=== PATIENT | male | born 1945 | race Caucasian/White ===

== ENCOUNTER 2018-03-16 18:36 | Inpatient (IN) | payer MEDICARE ==
[2018-03-16 22:15] LABS: Bilirubin Negative (Negative); Blood, Urine Trace (Negative); Clarity Clear (Clear); Glucose, Urine (Dipstick) Negative (Negative); Leukocyte Moderate (Negative); Nitrite Negative (Negative); Protein, Urine (Dipstick) Negative (Neg-Trace); Specific Gravity, Urine 1.015 (1.005-1.030); pH, Urine 7.5 (5.0-9.0)
[2018-03-16 22:37] LABS: Bacteria/HPF 2+ HPF (None Seen); Squamous Epithelial 0-3 HPF (0-3)
[2018-03-16] MEDS ORDERED: Ondansetron ODT 4 MG TAB PO PRN (22:51)
[2018-03-16] MEDS ORDERED: Famotidine 20 MG TAB PO SCH (23:00)
[2018-03-16] MEDS ORDERED: Sodium Chloride 0.9% 10 ML ONE (23:17)
[2018-03-16] MEDS: Cyclobenzaprine 10 MG TAB PO PRN (23:24)
[2018-03-16] MEDS: Piperacillin/Tazobactam 3.375 GM in Sodium Chloride 0.9% 100 ML IVPB SCH (23:25)
[2018-03-17] MEDS ORDERED: Sodium Chloride 0.9% 10 ML ONE (04:32)
[2018-03-17] MEDS: Mometasone/Formoterol 60 PUFF AER INH SCH ×2 (04:43→18:37)
[2018-03-17] MEDS: Piperacillin/Tazobactam 3.375 GM in Sodium Chloride 0.9% 100 ML IVPB SCH (05:13)
[2018-03-17 05:31] LABS: #Basophils 0.1 thou/uL (0.0-0.2); #Eosinphils 0.9 thou/uL (0.0-0.7); #Lymphocytes 1.8 thou/uL (1.20-3.40); #Monocytes 0.8 thou/uL (0.11-0.59); #Neutrophils 5.6 thou/uL (1.40-6.50); %Basophils 0.9 % (0.0-1.0); %Eosinophils 9.4 % (0.0-10.0); %Lymphocytes 19.4 % (21.0-51.0); %Monocytes 8.6 % (0.0-10.0); %Neutrophils 61.7 % (42.0-75.0); Hemoglobin 8.4 g/dL (14.0-18.0); Mean Corpuscular HGB CONC 30.9 g/dL (32.0-36.0); Mean Corpuscular Hemoglobin 28.6 pg (27.0-31.0); Mean Corpuscular Volume 92.6 fL (78.0-98.0); Mean Platelet Volume 5.2 fL (7.4-10.4); Platelet Count 411 thou/uL (130-400); RBC Distribution Width 17.5 % (11.5-14.5); Red Blood Cell (RBC) Count 2.95 mill/uL (4.70-6.10); White Blood Cell (WBC) Count 9.1 thou/uL (4.8-10.8)
[2018-03-17 05:44] LABS: Anion Gap 10 mmol/L (10-20); BUN (Urea Nitrogen) 9 mg/dL (8.4-25.7); Calc. Creatinine Clearance 126 mL/min (70-130); Calcium 8.4 mg/dL (7.8-10.44); Carbon Dioxide 24 mmol/L (23-31); Chloride 104 mmol/L (98-107); Estimated GFR-MDRD Greater than 90; Glucose 89 mg/dL (83-110); Potassium 4.1 mmol/L (3.5-5.1); Sodium 134 mmol/L (136-145)
[2018-03-17] MEDS: Meropenem 1 GM in Sodium Chloride 0.9% 100 ML IVPB SCH ×2 (09:39→18:33)
[2018-03-17] MEDS: Famotidine 20 MG TAB PO SCH ×2 (09:41→20:50)
[2018-03-17] MEDS: Thiamine 100 MG TAB PO SCH (09:42)
[2018-03-17] MEDS: guaiFENesin ER 600 MG TAB PO SCH ×2 (09:42→20:50)
[2018-03-17] MEDS: Aspirin 81 mg Enteric Coated Tablet PO SCH (09:42)
[2018-03-17] MEDS: Cyclobenzaprine 10 MG TAB PO PRN ×2 (09:45→18:33)
[2018-03-17] MEDS: Docusate 100 MG CAP PO SCH (09:47)
[2018-03-17] MEDS: Polyethylene Glycol 3350 17 GM Packet PO SCH (09:47)
[2018-03-17] MEDS ORDERED: Sodium Chloride 0.9% 20 ML ONE (10:49)
--- NOTE | 2018-03-17 20:47 | PRG ---
DATE OF SERVICE: 03/17/2018 SUBJECTIVE: The patient feels well, sitting up in bed, eating supper. No complaints. He has had his wound VAC placed on his sacrum, but not on his heels. He is having no fever, chills, nausea, or vomiting. OBJECTIVE: VITAL SIGNS: Show temperature is 97.8, pulse is 86, respirations 20, O2 saturation is 100% on 2.5 L. LUNGS: Show improved breath sounds with a few wheezes and rhonchi anteriorly in the right lung. CARDIAC: Regular rhythm. ABDOMEN: Soft and nontender. MUSCULOSKELETAL: Wound VAC is in place on the sacrum and heels are bandaged. ASSESSMENT AND PLAN: 1. Stage IV sacral decubitus with infection, on IV meropenem for 6 weeks. 2. 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 3. 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 Job ID: [id number]
--- NOTE | 2018-03-18 00:43 | HP ---
Admission to the skilled unit [facility]. 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 He has subsequently been essentially bed and chair ridden since that time, has developed extensive decubitus ulcer in the sacrum as well as bilateral heels requiring incision and debridement by Dr. Harris Don and institution of empiric IV antibiotics. He was seen by Infectious Disease and because of multiple anaerobes, mainly gram-negative and corynebacterium, he was initially placed on Invanz, but then was switched to meropenem upon transfer to [facility]. His urine culture did show Pseudomonas also. He had a complication immediately prior to transfer with mucous plugging of his right lung with subsequent right lung collapse, which responded to conservative treatment with EzPAP and bronchodilators as he did refuse bronchoscopy. At present, he is not complaining of any chest pain or shortness of breath. As mentioned above, he has no feeling in his sacrum and heels at the side of the decubitus. He has had no fever or chills. No cough. He is eating well. No aspiration. PAST MEDICAL HISTORY: Remarkable for: 1. COPD. 2. Pulmonary embolus. 3. Hypertension. 4. Esophageal malignancy. 5. Recurrent UTIs. 6. Sepsis. PAST SURGICAL HISTORY: Positive for the abovementioned debridement and spinal surgery as well as esophageal dilation, but no removal of the cancer of the esophagus. FAMILY MEDICAL HISTORY: Noncontributory. SOCIAL HISTORY: He is a former heavy smoker. He does not drink. He lives alone. ALLERGIES: HE HAS NO KNOWN ALLERGIES. MEDICATIONS: On transfer from [facility] included: 1. Tylenol as needed. 2. Docusate 100 daily. 3. Famotidine 20 twice daily. 4. Handheld nebulizers with DuoNeb every 4 hours routinely. 5. Zofran 4 mg as needed. 6. Tramadol 50 mg every 6 hours as needed. 7. Meropenem 1 g twice daily. 8. Symbicort 80/4.5 two puffs twice daily. 9. Dapsone 50 mg every other day alternating with 100. 10. Aspirin 81 daily. REVIEW OF SYSTEMS: He denies any headaches, dizziness, change in vision or hearing, hoarseness, or dysphagia. PULMONARY: He has occasional cough. No sputum production. He has had chest pain with the mucus plug, but none at present. CARDIOVASCULAR: He denies chest pain, palpitations, orthopnea, paroxysmal nocturnal dyspnea, or edema. GASTROINTESTINAL: He denies nausea, vomiting, diarrhea, or abdominal pain. Does have constipation. GENITOURINARY: Denies dysuria, hematuria, or nocturia, but he does have Carvalho catheter in place because of neurogenic bladder. NEUROLOGIC: As mentioned above, he has paraplegia at the T4 level with decreased sensation also. EXTREMITIES: He does have a large stage IV decubitus of the sacrum and bilateral heel decubitus, stage III to IV. DATA REVIEWED: LABORATORY RESULTS: Most recent laboratory showed him to have white count of 9100, hematocrit 27, and hemoglobin 8.4. Sodium 134, potassium 4.1, chloride 104, bicarbonate 24, BUN 9, and creatinine 0.64. IMAGING RESULTS: Most recent chest x-ray shows persistent volume loss and right hemithorax. ASSESSMENT: 1. Esophageal cancer with metastasis to thoracic spine and subsequent paraplegia secondary to surgical removal. 2. Subsequent stage IV decubitus of the sacrum and the heels requiring debridement and long-term antibiotics for 6 weeks with IV meropenem for multiple Gram negative anaerobes and aerobes. 3. Recent right lung collapse with mucus plugging secondary to the paraplegia, paralyzed diaphragm, improved with handheld nebulizers, but not resolved. We will continue around the clock and we will get repeat x-ray. 4. Neurogenic bladder with Carvalho catheter in place and Pseudomonas infection of the catheter, sensitive to the meropenem. PLAN: 1. Continue PT and wound care. Patient up in the bed as much as possible. Wound VAC to both sacrum and both heels. 2. Continue IV meropenem for 6 weeks on instructions of Infectious Disease. 3. Continue to stress incentive spirometry and handheld nebulizers and repeat chest x-ray to document improvement of right lung collapse. 4. Patient is a full code and will be aggressive on pulmonary toilet and possible transfer for more treatment aggressively if needed. Job ID: [id number]
[2018-03-18] MEDS ORDERED: Sodium Chloride 0.9% 20 ML ONE ×3 (02:28→17:45)
[2018-03-18] MEDS: Meropenem 1 GM in Sodium Chloride 0.9% 100 ML IVPB SCH ×3 (02:36→18:05)
[2018-03-18] MEDS: Mometasone/Formoterol 60 PUFF AER INH SCH ×2 (05:43→18:39)
--- NOTE | 2018-03-18 08:14 | RAD ---
PORTABLE CHEST: Date: 03/18/18 PROVIDED CLINICAL HISTORY: Right lung collapse. FINDINGS: Comparison made with study dated 03/15/16. The cardiac and mediastinal silhouette is unchanged in appearance. Right-sided implanted port is agai n seen in similar position. There is probable improved aeration at the right lung base, with some per sistent parenchymal opacity likely present. No evidence for pleural fluid or pneumothorax. IMPRESSION: Probable improvement in aeration of the right lung base. POS: [facility]
[2018-03-18] MEDS: Aspirin 81 mg Enteric Coated Tablet PO SCH (09:15)
[2018-03-18] MEDS: Docusate 100 MG CAP PO SCH (09:15)
[2018-03-18] MEDS: Famotidine 20 MG TAB PO SCH ×2 (09:16→20:54)
[2018-03-18] MEDS: Thiamine 100 MG TAB PO SCH (09:16)
[2018-03-18] MEDS: guaiFENesin ER 600 MG TAB PO SCH ×2 (09:17→20:54)
[2018-03-18] MEDS: Polyethylene Glycol 3350 17 GM Packet PO SCH (09:26)
[2018-03-18] MEDS: Cyclobenzaprine 10 MG TAB PO PRN (20:54)
[2018-03-19] MEDS: Meropenem 1 GM in Sodium Chloride 0.9% 100 ML IVPB SCH ×3 (02:34→18:08)
[2018-03-19] MEDS ORDERED: Sodium Chloride 0.9% 10 ML ONE (03:38)
[2018-03-19] MEDS: Mometasone/Formoterol 60 PUFF AER INH SCH ×2 (05:43→20:58)
--- NOTE | 2018-03-19 06:58 | PRG ---
DATE OF SERVICE: 03/18/2018 SUBJECTIVE: The patient feels well. No shortness of breath, chest pain, cough, fever, or chills. OBJECTIVE: VITAL SIGNS: With pulse 100, respirations 20, O2 saturations 94% on 2 L, blood pressure is 122/62. LUNGS: Clear. CARDIAC: Shows regular rhythm. ABDOMEN: Soft and nontender. MUSCULOSKELETAL: Shows wound VAC in place on the sacrum, and the heels are bandaged. DIAGNOSTIC DATA: Urine culture shows no growth at 12 hours. Chest x-ray shows improving right lung collapse with good aeration. ASSESSMENT: 1. Resolving stage IV decubitus on IV meropenem and wound VAC for 6 weeks. 2. Stable T4 paraplegia. 3. Resolved right lung collapse with improved x-ray and oxygenation was still requiring low-flow oxygen. 4. Heel decubitus and we will attempt to get wound VAC placed per recommendation of [facility]. Job ID: [id number]
--- NOTE | 2018-03-19 07:48 | PRG ---
DATE OF SERVICE: 03/19/2018 SUBJECTIVE: The patient feels well with no complaints. Resting in bed, having in no soreness of heels or bottom and does have a sensory deprivation. He is having no cough, shortness of breath, or chest pain. OBJECTIVE: VITAL SIGNS: Show O2 sats 93% on 2 L, respirations 20, pulse 98, temperature 97.7, blood pressure 133/76. LUNGS: Clear. CARDIAC: Shows regular rhythm. ABDOMEN: Soft. SKIN/EXTREMITIES: Show wound VAC in place on the sacrum. Heels are bandaged. ASSESSMENT: 1. Resolved right lower lobe collapse. 2. Stable T4 paraplegia. 3. Stable stage IV decubitus of sacrum on wound VAC and IV meropenem for 6 weeks. 4. Stable bilateral heel decubitus bandage and need of wound VAC. PLAN: 1. Consult PT, OT today. 2. Continue meropenem. 3. Transfer and keep moving in the bed as much as possible. Job ID: [id number]
[2018-03-19] MEDS ORDERED: Sodium Chloride 0.9% 20 ML ONE ×2 (08:39→17:40)
[2018-03-19] MEDS: Famotidine 20 MG TAB PO SCH ×2 (08:43→20:58)
[2018-03-19] MEDS: guaiFENesin ER 600 MG TAB PO SCH ×2 (08:43→20:58)
[2018-03-19] MEDS: Aspirin 81 mg Enteric Coated Tablet PO SCH (08:43)
[2018-03-19] MEDS: Thiamine 100 MG TAB PO SCH (08:44)
[2018-03-19] MEDS: Docusate 100 MG CAP PO SCH (08:44)
[2018-03-19] MEDS: Polyethylene Glycol 3350 17 GM Packet PO SCH (09:18)
[2018-03-19 11:37] VITALS: BMI 26.7
[2018-03-19] MEDS ORDERED: guaiFENesin ER 600 MG TAB ONE (20:54)
[2018-03-19] MEDS: Cyclobenzaprine 10 MG TAB PO PRN (20:59)
[2018-03-20] MEDS ORDERED: Sodium Chloride 0.9% 10 ML ONE (02:07)
[2018-03-20] MEDS: Meropenem 1 GM in Sodium Chloride 0.9% 100 ML IVPB SCH ×3 (02:13→18:06)
[2018-03-20] MEDS: Mometasone/Formoterol 60 PUFF AER INH SCH ×2 (06:12→18:10)
[2018-03-20] MEDS: Aspirin 81 mg Enteric Coated Tablet PO SCH (08:48)
[2018-03-20] MEDS: Docusate 100 MG CAP PO SCH (08:48)
[2018-03-20] MEDS: Thiamine 100 MG TAB PO SCH (08:48)
[2018-03-20] MEDS: Cyclobenzaprine 10 MG TAB PO PRN ×2 (08:48→21:13)
[2018-03-20] MEDS: Polyethylene Glycol 3350 17 GM Packet PO SCH (08:49)
[2018-03-20] MEDS: Famotidine 20 MG TAB PO SCH ×2 (08:49→21:12)
[2018-03-20] MEDS: guaiFENesin ER 600 MG TAB PO SCH ×2 (08:54→21:13)
--- NOTE | 2018-03-20 18:56 | PRG ---
DATE OF SERVICE: 03/20/2018 SUBJECTIVE: The patient feels well, eating well, having no nausea or vomiting. No cough. No shortness of breath or chest pain. OBJECTIVE: VITAL SIGNS: Shows temperature is 97.9, pulse 105, respirations 20, O2 saturations 90% on nasal cannula, it was 96% earlier today. Blood pressure 129/76. LUNGS: Clear. CARDIAC: Regular rhythm. ABDOMEN: Soft and nontender. SKIN/EXTREMITIES: Show sacral wound VAC in place and heel decubitus bandage with Medihoney and Mepilex. ASSESSMENT: 1. Stage IV sacral decubitus, on wound VAC and IV meropenem for 6 weeks. 2. T4 paraplegia, stable. 3. Mucus plug and right lower lobe collapsed lung, stable. PLAN: Continue nutrition. Continue wound VAC. Continue IV meropenem. Continue pain relief as needed. Job ID: [id number]
[2018-03-21] MEDS ORDERED: Sodium Chloride 0.9% 10 ML ONE ×2 (01:43→09:29)
[2018-03-21] MEDS: Meropenem 1 GM in Sodium Chloride 0.9% 100 ML IVPB SCH ×3 (02:20→18:12)
[2018-03-21] MEDS: Mometasone/Formoterol 60 PUFF AER INH SCH ×2 (06:08→18:13)
[2018-03-21] MEDS: guaiFENesin ER 600 MG TAB PO SCH ×2 (09:21→20:22)
[2018-03-21] MEDS: Cyclobenzaprine 10 MG TAB PO PRN ×2 (09:21→18:14)
[2018-03-21] MEDS: Thiamine 100 MG TAB PO SCH (09:21)
[2018-03-21] MEDS: Famotidine 20 MG TAB PO SCH ×2 (09:21→20:22)
[2018-03-21] MEDS: Polyethylene Glycol 3350 17 GM Packet PO SCH (09:22)
[2018-03-21] MEDS: Aspirin 81 mg Enteric Coated Tablet PO SCH (09:22)
[2018-03-21] MEDS: Docusate 100 MG CAP PO SCH (09:22)
--- NOTE | 2018-03-21 17:08 | RAD ---
CHEST 1 VIEW: Date: 03/21/18 HISTORY: Dyspnea. Mucus plugging. COMPARISON: 03/18/18. FINDINGS: Cardiac silhouette and pulmonary vasculature unremarkable. Mediastinum is midline with right subclavi an MediPort. Infiltrate-like opacity at the right posterior lung base is more pronounced than on the 03/18/18 stud y. No other infiltrate or evidence of pneumothorax. IMPRESSION: Increasing parenchymal opacity at the right posterior lung base. Nonspecific infiltrate or atelectasi s. Mucus plugging could certainly result in this parenchymal opacity/atelectasis. POS: [facility]
[2018-03-21 18:01] LABS: #Basophils 0.1 thou/uL (0.0-0.2); #Lymphocytes 1.4 thou/uL (1.20-3.40); #Monocytes 1.2 thou/uL (0.11-0.59); %Basophils 0.7 % (0.0-1.0); %Eosinophils 6.3 % (0.0-10.0); %Lymphocytes 8.9 % (21.0-51.0); %Monocytes 7.4 % (0.0-10.0); %Neutrophils 76.7 % (42.0-75.0); Hemoglobin 9.1 g/dL (14.0-18.0); Mean Corpuscular Hemoglobin 29.6 pg (27.0-31.0); Mean Corpuscular Volume 95.5 fL (78.0-98.0); Mean Platelet Volume 5.1 fL (7.4-10.4); Platelet Count 565 thou/uL (130-400); Red Blood Cell (RBC) Count 3.06 mill/uL (4.70-6.10); White Blood Cell (WBC) Count 15.7 thou/uL (4.8-10.8)
[2018-03-21 18:02] LABS: Anion Gap 10 mmol/L (10-20); BUN (Urea Nitrogen) 13 mg/dL (8.4-25.7); Calc. Creatinine Clearance 130 mL/min (70-130); Calcium 8.9 mg/dL (7.8-10.44); Carbon Dioxide 23 mmol/L (23-31); Chloride 103 mmol/L (98-107); Estimated GFR-MDRD Greater than 90; Glucose 108 mg/dL (83-110); Potassium 4.1 mmol/L (3.5-5.1); Sodium 132 mmol/L (136-145)
--- NOTE | 2018-03-21 18:27 | PRG ---
DATE OF SERVICE: 03/21/2018 SUBJECTIVE: The patient feels well today with no cough, shortness of breath, but has been noticed to have tachypnea and tachycardia this afternoon and hypotension. He denies chest pain, fever, or chills. OBJECTIVE: VITAL SIGNS: Blood pressure is 80/53, but did increase to 105/50; pulse is 107; respirations 18; O2 sats 96% on 2 L. Afebrile. CHEST/LUNGS: Chest x-ray did show a worsening small right lower lobe infiltrate consistent with mucus plugging. Lungs appear to be clear with no rales, rhonchi, or wheezes, but they were coarse earlier prior to neb treatment. LABORATORY DATA: CBC and basic metabolic profile are pending. ASSESSMENT: 1. Recurrent small mucus plugs, and we will aggressively do handheld nebulizers and if white count is elevated, start on antibiotics. 2. T4 paraplegia, cooperating well with therapy. 3. Stage IV decubitus of sacrum, healing well with wound VAC and on meropenem. 4. Bilateral heel decubitus, being treated with Medihoney and Mepilex. Job ID: [id number]
[2018-03-21] MEDS ORDERED: Fluconazole 100 MG TAB PO SCH (19:00)
[2018-03-21] MEDS ORDERED: Nystatin Powder 15 GM BOT TOP SCH (21:00)
[2018-03-22] MEDS ORDERED: Sodium Chloride 0.9% 10 ML ONE (02:19)
[2018-03-22] MEDS: Meropenem 1 GM in Sodium Chloride 0.9% 100 ML IVPB SCH ×3 (02:26→18:16)
[2018-03-22] MEDS: Mometasone/Formoterol 60 PUFF AER INH SCH ×2 (05:38→18:35)
[2018-03-22] MEDS: Docusate 100 MG CAP PO SCH (09:07)
[2018-03-22] MEDS: Aspirin 81 mg Enteric Coated Tablet PO SCH (09:07)
[2018-03-22] MEDS: Fluconazole 100 MG TAB PO SCH (09:08)
[2018-03-22] MEDS: guaiFENesin ER 600 MG TAB PO SCH ×2 (09:08→20:33)
[2018-03-22] MEDS: Famotidine 20 MG TAB PO SCH ×2 (09:08→20:33)
[2018-03-22] MEDS: Thiamine 100 MG TAB PO SCH (09:09)
[2018-03-22] MEDS: Polyethylene Glycol 3350 17 GM Packet PO SCH (09:09)
[2018-03-22] MEDS: Cyclobenzaprine 10 MG TAB PO PRN (20:33)
[2018-03-23] MEDS: Meropenem 1 GM in Sodium Chloride 0.9% 100 ML IVPB SCH ×3 (02:30→17:45)
[2018-03-23] MEDS: Mometasone/Formoterol 60 PUFF AER INH SCH ×2 (05:37→17:45)
[2018-03-23] MEDS: Polyethylene Glycol 3350 17 GM Packet PO SCH (09:00)
[2018-03-23] MEDS: Thiamine 100 MG TAB PO SCH (09:00)
[2018-03-23] MEDS: Fluconazole 100 MG TAB PO SCH (09:01)
[2018-03-23] MEDS: Famotidine 20 MG TAB PO SCH ×2 (09:02→21:43)
[2018-03-23] MEDS: Docusate 100 MG CAP PO SCH (09:02)
[2018-03-23] MEDS: Aspirin 81 mg Enteric Coated Tablet PO SCH (09:02)
[2018-03-23] MEDS: guaiFENesin ER 600 MG TAB PO SCH ×2 (09:02→21:43)
[2018-03-23] MEDS: Cyclobenzaprine 10 MG TAB PO PRN (21:43)
[2018-03-24] MEDS: Meropenem 1 GM in Sodium Chloride 0.9% 100 ML IVPB SCH ×3 (02:27→17:49)
[2018-03-24] MEDS: Mometasone/Formoterol 60 PUFF AER INH SCH ×2 (05:54→17:50)
[2018-03-24] MEDS: Polyethylene Glycol 3350 17 GM Packet PO SCH (09:38)
[2018-03-24] MEDS: guaiFENesin ER 600 MG TAB PO SCH ×2 (09:39→20:58)
[2018-03-24] MEDS: Docusate 100 MG CAP PO SCH (09:39)
[2018-03-24] MEDS: Famotidine 20 MG TAB PO SCH ×2 (09:39→20:59)
[2018-03-24] MEDS: Aspirin 81 mg Enteric Coated Tablet PO SCH (09:39)
[2018-03-24] MEDS: Fluconazole 100 MG TAB PO SCH (09:40)
[2018-03-24] MEDS: Thiamine 100 MG TAB PO SCH (09:40)
[2018-03-24] MEDS: Cyclobenzaprine 10 MG TAB PO PRN ×2 (09:40→20:58)
--- NOTE | 2018-03-24 23:14 | PRG ---
DATE OF SERVICE: 03/24/2018 SUBJECTIVE: Mr. Durbin is a 72-year-old white male with history of esophageal cancer with metastasis to the thoracic spine. It required surgical removal with subsequent paraplegia in the sensory motor nerves of T3 through 4. He basically is bed and chair ridden since that time. He has had an extensive decubitus in the sacral area as well as bilateral decubitus on his heels. Dr. Don did debridement and he was started on empiric antibiotics. He was transferred to [facility] for continued antibiotic therapy. OBJECTIVE: VITAL SIGNS: Vital signs today reveal blood pressure 112/66, pulse 97 to 106, respirations 18 to 20, O2 saturation 92% to 99% on 2 L nasal cannula, and T-max 99. GENERAL: This is a well-developed, well-nourished, thin white male, in no apparent distress at this time. HEENT: Reveals normocephalic, nontraumatic cranium. The pupils are equally round and reactive. Extraocular movements are intact. Nose and throat are dry, but clear. NECK: Supple without masses, nodes or bruits. CHEST: Clear to auscultation. No rales, rhonchi, or wheezes are heard. HEART: Reveals a regular rate and rhythm without murmurs, gallops, or rubs. ABDOMEN: Soft, nontender without organomegaly. Scaphoid. No rebound or guarding is noted. : Deferred. EXTREMITIES: Revealed no clubbing, cyanosis, or edema. The patient does have wound VAC on his stage IV decubitus on the sacrum and bilateral heel, stage III and IV. ASSESSMENT: 1. Esophageal cancer with metastasis to the thoracic spine and subsequent paraplegia. 2. Stage IV decubitus in the sacrum requiring wound VAC, debridement and long-term antibiotics of meropenem. 3. Right lung collapse recently with mucous plugging secondary to paraplegia and paralyzed diaphragm. 4. Neurogenic bladder with Carvalho catheter and Pseudomonas sensitive to meropenem. PLAN: 1. Continue PT and OT. 2. Continue wound care. 3. Keep the patient up in bed or out of bed as much as possible. 4. Wound VAC to both sacrum and both heels. 5. Meropenem for total of 6 weeks per Infectious Disease. 6. Stress incentive spirometry and handheld nebulizers. 7. The patient is a full code. 8. Aggressive pulmonary toilet. 9. Stress ulcer prophylaxis. 10. Decubitus precautions. 11. DVT prophylaxis per Service. Job ID: [id number]
[2018-03-25] MEDS: Meropenem 1 GM in Sodium Chloride 0.9% 100 ML IVPB SCH ×3 (02:04→18:19)
[2018-03-25] MEDS: Mometasone/Formoterol 60 PUFF AER INH SCH ×2 (05:35→18:20)
--- NOTE | 2018-03-25 07:58 | PRG ---
DATE OF SERVICE: 03/25/2018 SUBJECTIVE: Mr. Durbin is a pleasant 72-year-old white male with unfortunate esophageal cancer metastasis to the thoracic spine. He had to have surgical removal of a metastasis to the spine, which resulted in paraplegia of the sensory motor nerves on T3 through 4. Basically, he was in bed and chair ridden since that time. He has extensive decubitus in the sacral area as well as bilateral decubitus on his heels. Dr. Don was able to do debridement and he was started on empiric antibiotics. He was transferred to [facility] for continued antibiotic therapy and physical therapy. OBJECTIVE: VITAL SIGNS: Today reveals blood pressure 103/65, pulse 97 to 106, respirations 18 to 20, O2 saturation 96% to 99% on 2 L nasal cannula, T-max 99. PHYSICAL EXAMINATION: GENERAL: This is a well-developed, very thin, white male, with no complaints today. HEENT: Reveals normocephalic, nontraumatic cranium. Pupils are equally round and reactive. Extraocular movements are intact. Nose and throat are slightly dry. NECK: Supple without masses, nodes, or bruits. CHEST: Clear to auscultation. No rales, rhonchi, or wheezes are heard. HEART: Reveals a regular rate and rhythm without murmurs, gallops, or rubs. ABDOMEN: Soft, nontender without organomegaly. Normal bowel sounds are noted in all 4 quadrants. No rebound or guarding is noted. Abdomen is noted to be scaphoid. : Deferred. EXTREMITIES: Reveal no clubbing, cyanosis, or edema. The patient does have a VAC on his stage IV decubitus and on bilateral heels, which is stage III and stage IV. ASSESSMENT: 1. Esophageal cancer with metastasis to the thoracic spine and subsequent paraplegia. 2. Stage IV decubitus in the sacrum requiring wound VAC, debridement and long-term antibiotics of meropenem. 3. Right lung collapse recently with mucous plugging secondary to paraplegia and paralyzed diaphragm. 4. Neurogenic bladder with Carvalho catheter. 5. Growing Pseudomonas sensitive to meropenem. PLAN: 1. Continue wound care. 2. Continue the patient to keep him up in bed and out of bed as much as possible. 3. Wound VAC to both sacrum and both heels. 4. Meropenem for total of 6 weeks per Infectious Disease. 5. Stress incentive spirometry and handheld nebulizers. 6. The patient continues to be a full code. 7. Aggressive pulmonary toilet. 8. Stress ulcer prophylaxis. 9. Decubitus precautions. 10. DVT prophylaxis per primary service. 11. Continue PT and OT. Dr. Campos will be back tomorrow. Job ID: [id number]
[2018-03-25] MEDS: Cyclobenzaprine 10 MG TAB PO PRN ×2 (09:25→20:59)
[2018-03-25] MEDS: Fluconazole 100 MG TAB PO SCH (09:25)
[2018-03-25] MEDS: Docusate 100 MG CAP PO SCH (09:26)
[2018-03-25] MEDS: Aspirin 81 mg Enteric Coated Tablet PO SCH (09:27)
[2018-03-25] MEDS: guaiFENesin ER 600 MG TAB PO SCH ×2 (09:28→20:59)
[2018-03-25] MEDS: Polyethylene Glycol 3350 17 GM Packet PO SCH (09:28)
[2018-03-25] MEDS: Famotidine 20 MG TAB PO SCH ×2 (09:28→20:59)
[2018-03-25] MEDS: Thiamine 100 MG TAB PO SCH (09:28)
[2018-03-26] MEDS: Meropenem 1 GM in Sodium Chloride 0.9% 100 ML IVPB SCH ×3 (02:46→18:21)
[2018-03-26] MEDS: Mometasone/Formoterol 60 PUFF AER INH SCH ×2 (05:23→18:22)
[2018-03-26] MEDS: Aspirin 81 mg Enteric Coated Tablet PO SCH (09:37)
[2018-03-26] MEDS: Docusate 100 MG CAP PO SCH (09:38)
[2018-03-26] MEDS: Fluconazole 100 MG TAB PO SCH (09:38)
[2018-03-26] MEDS: Famotidine 20 MG TAB PO SCH ×2 (09:38→20:46)
[2018-03-26] MEDS: guaiFENesin ER 600 MG TAB PO SCH ×2 (09:39→20:46)
[2018-03-26] MEDS: Thiamine 100 MG TAB PO SCH (09:39)
[2018-03-26] MEDS: Polyethylene Glycol 3350 17 GM Packet PO SCH (09:39)
--- NOTE | 2018-03-26 15:55 | PRG ---
DATE OF SERVICE: 03/22/2018 SUBJECTIVE: The patient feels well, sitting up in the bed, eating with no cough or shortness of breath. OBJECTIVE: GENERAL: Speech Therapy, however, stated the patient is unsafe for any swallowing with the patient and refused PEG tube. VITAL SIGNS: Show blood pressure of 103/62, temperature is 97.1, pulse 104, respirations 20, O2 sats 93% on 2 L. LUNGS: Clear, except for few crackles in the right base. CARDIAC: Regular rhythm. ABDOMEN: Soft and nontender. SKIN AND EXTREMITIES: Displayed no edema, clubbing, or cyanosis. There is a wound VAC in place over large stage IV sacral decubitus, functioning well. Bilateral heel decubitus, healing well. IMAGING STUDIES: Chest x-ray done yesterday showed increasing parenchymal opacity in the right posterior lung base with atelectasis and possible mucous plugging. ASSESSMENT: 1. C4 quadriplegia with stage IV decubitus of sacrum on wound VAC, healing well. 2. Recurrent mucus plugging, now with right lower lobe infiltrate and with failed speech study. PLAN: 1. Have the patient sign waiver risk as he refuses PEG tube for further evaluation. Pulmonary states he feels very well. 2. Continue IV meropenem. 3. Continue PT and OT and wound care. Job ID: [id number]
--- NOTE | 2018-03-26 16:18 | PRG ---
DATE OF SERVICE: 03/23/2018 SUBJECTIVE: The patient feels well. Eating his lunch with no problems, cough, shortness of breath, or chest pain. He eating. OBJECTIVE: Shows, LUNGS: Clear. CARDIAC: Showed regular rhythm. ABDOMEN: Soft and nontender. SKIN/EXTREMITIES: No edema, clubbing, or cyanosis. There is bilateral heel decubitus, covered with bandage. There is a large sacral decubitus with wound VAC. ASSESSMENT: 1. T4 quadriplegia with poor diaphragmatic function. 2. Stable stage IV decubitus, on wound VAC and IV meropenem. 3. Recurrent mucus plugging, secondary to diaphragmatic dysfunction and now possible on recurrent aspiration. PLAN: 1. Continue pleasure feedings. 2. Continue wound VAC. 3. Continue IV antibiotics. 4. Re-consult Speech next week. Job ID: [id number]
[2018-03-26] MEDS: Cyclobenzaprine 10 MG TAB PO PRN (20:46)
[2018-03-27] MEDS: Meropenem 1 GM in Sodium Chloride 0.9% 100 ML IVPB SCH ×3 (02:39→22:02)
[2018-03-27] MEDS: Mometasone/Formoterol 60 PUFF AER INH SCH ×2 (05:48→18:37)
[2018-03-27] MEDS: Fluconazole 100 MG TAB PO SCH (09:31)
[2018-03-27] MEDS: Aspirin 81 mg Enteric Coated Tablet PO SCH (09:33)
[2018-03-27] MEDS: Docusate 100 MG CAP PO SCH (09:34)
[2018-03-27] MEDS: Thiamine 100 MG TAB PO SCH (09:34)
[2018-03-27] MEDS: guaiFENesin ER 600 MG TAB PO SCH ×2 (09:35→20:17)
[2018-03-27] MEDS: Famotidine 20 MG TAB PO SCH ×2 (09:35→20:16)
[2018-03-27] MEDS: Polyethylene Glycol 3350 17 GM Packet PO SCH (09:37)
[2018-03-27] MEDS: traMADol HCl 50 MG TAB PO PRN (15:04)
--- NOTE | 2018-03-27 19:06 | PRG ---
DATE OF SERVICE: 03/26/2018 SUBJECTIVE: The patient feels well. Only complains of occasional cough, shortness of breath. No chest pain or dyspnea. He is eating well. He is unable to do much therapy, but appears to be having improvement in his wound according to Physical Therapy. OBJECTIVE: VITAL SIGNS: Show his blood pressure is 98/61, temperature is 96, pulse 100, respirations 18, and O2 saturations 96% on 2 L. LUNGS: Show a few diffuse rhonchi, worse on the right. CARDIAC: Showed regular rhythm. No gallops or murmurs. ABDOMEN: Soft and nontender. SKIN/EXTREMITIES: Showed wound VAC in place on the left buttock and sacrum, bilateral heel decubitus covered. ASSESSMENT: 1. Stage IV decubitus of the sacrum, improving on wound VAC and IV meropenem, we will continue for a full 6 weeks until April 27. 2. Bilateral heel decubitus, healing well. 3. Recurrent aspiration with patient risk. 4. Mucus plugging. We are working on . 5. Stable T4 paraplegia. Job ID: [id number]
[2018-03-28 05:45] LABS: Band 12 % (5-11); Eosinophils 5 % (0-10); Hypochromia SLIGHT = 6-15 cells (100X) (0-5/hpf); Lymphocytes 13 % (21-51); MDiff Complete? YES; Mean Corpuscular HGB CONC 31.1 g/dL (32.0-36.0); Mean Corpuscular Hemoglobin 29.3 pg (27.0-31.0); Mean Corpuscular Volume 94.4 fL (78.0-98.0); Mean Platelet Volume 5.1 fL (7.4-10.4); Metamyelocyte 1 % (0-0); Monocytes 3 % (0-10); Myelocyte 1 % (0-0); Neutrophil 65 % (42-75); Platelet Count 524 thou/uL (130-400); Platelet Morphology Comment Appears Increased; RBC Distribution Width 15.8 % (11.5-14.5); Red Blood Cell (RBC) Count 3.08 mill/uL (4.70-6.10); White Blood Cell (WBC) Count 9.1 thou/uL (4.8-10.8)
[2018-03-28] MEDS: Meropenem 1 GM in Sodium Chloride 0.9% 100 ML IVPB SCH ×3 (06:03→22:01)
[2018-03-28] MEDS: Mometasone/Formoterol 60 PUFF AER INH SCH ×2 (06:05→18:29)
--- NOTE | 2018-03-28 06:35 | PRG ---
DATE OF SERVICE: 03/27/2018 SUBJECTIVE: The patient feels well. No cough, sputum production, chest pain or shortness of breath. He has been eating and tolerating diet despite concerns of speech therapy. OBJECTIVE: LUNGS: Do show increased breath sounds in the right lung with few diffuse rhonchi. CARDIAC: Regular rhythm. ABDOMEN: Soft and nontender. Wound VAC is in place, functioning well on the sacrum. EXTREMITIES: Bilateral heels still covered with bandages. ASSESSMENT: 1. Resolving sacral decubitus on IV meropenem for a total of 6 weeks, stop date to be April 27. 2. Recurrent aspiration concerns. Speech therapy with waiver of safety signed by patient. Still eating well with no symptoms of cough or shortness of breath and we will get repeat x-ray. 3. T4 quadriplegia, problems with obvious paralysis of legs, but also diaphragmatic dysfunction and decreased intake with mucous plugging, but now working well. Incentive spirometry greater than 50-100 mL inspiration and with clearing lung perez and we will get repeat chest x-ray and CBC in the a.m. Job ID: [id number]
--- NOTE | 2018-03-28 08:28 | RAD ---
CHEST 1 VIEW: Date: 03/28/18 INDICATION: History of right lower lobe pneumonia. IMPRESSION: There is improvement in the air space opacity of the right lower lobe. Persistent areas of reticulono dularity remain. Continued follow-up is recommended. Left lung is clear. Right chest wall port is unc hanged. No pneumothorax is grossly evident. POS: [facility]
[2018-03-28] MEDS: Thiamine 100 MG TAB PO SCH (09:42)
[2018-03-28] MEDS: Fluconazole 100 MG TAB PO SCH (09:42)
[2018-03-28] MEDS: Aspirin 81 mg Enteric Coated Tablet PO SCH (09:43)
[2018-03-28] MEDS: Polyethylene Glycol 3350 17 GM Packet PO SCH (09:43)
[2018-03-28] MEDS: guaiFENesin ER 600 MG TAB PO SCH ×2 (09:43→22:01)
[2018-03-28] MEDS: Famotidine 20 MG TAB PO SCH ×2 (09:43→22:01)
[2018-03-28] MEDS: Docusate 100 MG CAP PO SCH (09:43)
--- NOTE | 2018-03-29 06:12 | PRG ---
DATE OF SERVICE: 03/28/2018 SUBJECTIVE: The patient feels well, lying in the bed with no complaints. Eating well with no cough, shortness of breath. Discussed situation with physical therapy, states the patient is tolerating wound VAC well and is having some granulation tissue and is having some healing of the heels decubitus requiring occasional debridement, but is not progressing well with PT. He is unable to sit or stand more than a few minutes without dizziness and lightheadedness. Discussed situation with the patient, who states that he has been on his back for months and feels this is from weakness, but that he was requiring Yoselin lift for movement at home at all times prior to his illness and that his daughter is willing to take him home with a Yoselin lift. OBJECTIVE: VITAL SIGNS: Blood pressure is 114/58, temperature is 98, pulse 99, respirations 20, and O2 sats 97% on room air. LABORATORY DATA: White count 9100, hematocrit 29, and hemoglobin 9. DIAGNOSTIC STUDIES: Chest x-ray shows improvement in the right lower lobe infiltrate and sacral decubitus is functioning well. The bilateral heel decubitus are bandaged and covered. ASSESSMENT: 1. Stage IV decubitus of the sacrum, on meropenem until April 27 and wound VAC and healing well. 2. Bilateral heel decubitus, status post occasional need for debridement, but appears to be having some slough and healing slowly with wound care. 3. T4 quadriplegia, with difficulty, with dizziness and lightheadedness, on any therapy, and unable to cooperate, and I have discussed with patient who wishes to continue on therapy in the bed, but realizes that he is not progressing and will require extensive management at home when he is discharged but states his daughter is willing to do this. 4. Recurrent aspiration appears to be resolving and stressed the patient need to chew carefully slowly and double swallow and monitor for cough or shortness of breath after eating. Job ID: [id number]
[2018-03-29] MEDS: Meropenem 1 GM in Sodium Chloride 0.9% 100 ML IVPB SCH ×3 (06:14→21:51)
[2018-03-29] MEDS: Mometasone/Formoterol 60 PUFF AER INH SCH ×2 (06:15→18:34)
[2018-03-29] MEDS: Polyethylene Glycol 3350 17 GM Packet PO SCH (09:29)
[2018-03-29] MEDS: Thiamine 100 MG TAB PO SCH (09:29)
[2018-03-29] MEDS: Aspirin 81 mg Enteric Coated Tablet PO SCH (09:29)
[2018-03-29] MEDS: Famotidine 20 MG TAB PO SCH ×2 (09:29→21:50)
[2018-03-29] MEDS: guaiFENesin ER 600 MG TAB PO SCH ×2 (09:29→21:50)
[2018-03-29] MEDS: Docusate 100 MG CAP PO SCH (09:29)
[2018-03-29] MEDS: traMADol HCl 50 MG TAB PO PRN (09:32)
[2018-03-29] MEDS: Acetaminophen 500 MG TAB PO PRN (09:32)
[2018-03-29] MEDS: Cyclobenzaprine 10 MG TAB PO PRN (21:50)
[2018-03-30] MEDS: Meropenem 1 GM in Sodium Chloride 0.9% 100 ML IVPB SCH ×3 (05:29→22:02)
[2018-03-30] MEDS: Mometasone/Formoterol 60 PUFF AER INH SCH ×2 (05:34→18:13)
[2018-03-30] MEDS: Thiamine 100 MG TAB PO SCH (09:33)
[2018-03-30] MEDS: Polyethylene Glycol 3350 17 GM Packet PO SCH (09:33)
[2018-03-30] MEDS: Aspirin 81 mg Enteric Coated Tablet PO SCH (09:33)
[2018-03-30] MEDS: Cyclobenzaprine 10 MG TAB PO PRN ×2 (09:33→22:02)
[2018-03-30] MEDS: Docusate 100 MG CAP PO SCH (09:33)
[2018-03-30] MEDS: Famotidine 20 MG TAB PO SCH ×2 (09:33→22:01)
[2018-03-30] MEDS: guaiFENesin ER 600 MG TAB PO SCH ×2 (09:33→22:01)
[2018-03-30] MEDS: traMADol HCl 50 MG TAB PO PRN (09:36)
[2018-03-31] MEDS: Meropenem 1 GM in Sodium Chloride 0.9% 100 ML IVPB SCH ×3 (05:46→21:27)
[2018-03-31] MEDS: Mometasone/Formoterol 60 PUFF AER INH SCH ×2 (06:09→18:16)
[2018-03-31] MEDS: Thiamine 100 MG TAB PO SCH (08:33)
[2018-03-31] MEDS: Docusate 100 MG CAP PO SCH (08:33)
[2018-03-31] MEDS: guaiFENesin ER 600 MG TAB PO SCH ×2 (08:33→21:26)
[2018-03-31] MEDS: Aspirin 81 mg Enteric Coated Tablet PO SCH (08:33)
[2018-03-31] MEDS: Famotidine 20 MG TAB PO SCH ×2 (08:33→21:26)
[2018-03-31] MEDS: Polyethylene Glycol 3350 17 GM Packet PO SCH (08:33)
--- NOTE | 2018-03-31 14:05 | PRG ---
DATE OF SERVICE: 03/31/2018 SUBJECTIVE: Mr. Durbin is doing well. Denies any complaints. Resting comfortably. He states that he is still significantly weak. His wound seems to be improving. He denies any other complaints. No family at bedside. Discussed with nursing. OBJECTIVE: VITAL SIGNS: He is afebrile, heart rate is 106, respirations are 20, oxygen saturation 98% on 2 L, blood pressure 106/66. CARDIOVASCULAR SYSTEM: S1, S2 plus. RESPIRATORY SYSTEM: Normal vesicular breath sounds. ABDOMEN: Soft, nontender. Bowel sounds heard in all quadrants. EXTREMITIES: Without cyanosis or clubbing. Peripheral pulses are palpable. SKIN: Stage IV sacral decubitus with presence of wound VAC and he has bilateral heel decubitus as well. IMPRESSION: 1. Esophageal cancer with metastasis to thoracic spine. 2. Stage IV sacral decubitus, requiring wound VAC. 3. Neurogenic bladder. 4. Significant deconditioning. PLAN: 1. Continue wound care. 2. Nutritional support. 3. DVT and stress ulcer prophylaxis. 4. Decubitus precautions. 5. Routine laboratory values. Job ID: [id number]
[2018-03-31] MEDS: Cyclobenzaprine 10 MG TAB PO PRN (21:26)
[2018-04-01] MEDS: Meropenem 1 GM in Sodium Chloride 0.9% 100 ML IVPB SCH ×3 (05:26→22:19)
[2018-04-01] MEDS: Mometasone/Formoterol 60 PUFF AER INH SCH ×2 (05:27→18:37)
[2018-04-01] MEDS: Aspirin 81 mg Enteric Coated Tablet PO SCH (08:31)
[2018-04-01] MEDS: Thiamine 100 MG TAB PO SCH (08:32)
[2018-04-01] MEDS: Docusate 100 MG CAP PO SCH (08:32)
[2018-04-01] MEDS: Polyethylene Glycol 3350 17 GM Packet PO SCH (08:32)
[2018-04-01] MEDS: Famotidine 20 MG TAB PO SCH ×2 (08:32→21:26)
[2018-04-01] MEDS: guaiFENesin ER 600 MG TAB PO SCH ×2 (08:32→21:26)
[2018-04-01] MEDS: Cyclobenzaprine 10 MG TAB PO PRN (21:26)
[2018-04-02] MEDS: Meropenem 1 GM in Sodium Chloride 0.9% 100 ML IVPB SCH ×3 (05:37→22:06)
[2018-04-02] MEDS: Mometasone/Formoterol 60 PUFF AER INH SCH ×2 (05:38→18:46)
[2018-04-02] MEDS: Docusate 100 MG CAP PO SCH (08:40)
[2018-04-02] MEDS: Polyethylene Glycol 3350 17 GM Packet PO SCH (08:40)
[2018-04-02] MEDS: Aspirin 81 mg Enteric Coated Tablet PO SCH (08:40)
[2018-04-02] MEDS: guaiFENesin ER 600 MG TAB PO SCH ×2 (08:40→20:18)
[2018-04-02] MEDS: Famotidine 20 MG TAB PO SCH ×2 (08:40→20:18)
[2018-04-02] MEDS: Acetaminophen 500 MG TAB PO PRN (08:41)
[2018-04-02] MEDS: traMADol HCl 50 MG TAB PO PRN (08:41)
[2018-04-02] MEDS: Thiamine 100 MG TAB PO SCH (08:41)
--- NOTE | 2018-04-02 11:49 | PRG ---
DATE OF SERVICE: 03/30/2018 SUBJECTIVE: The patient feels well. No cough, shortness of breath, not able to move much and not doing physical therapy, but is feeling well. He is having no sweats, chills, or shortness of breath. OBJECTIVE: VITAL SIGNS: Show blood pressure is 107/65, temperature 97, pulse 102, respirations 20, O2 sats 95% on 2 L. LUNGS: Clear. CARDIAC: Showed regular rhythm. ABDOMEN: Soft and nontender. ASSESSMENT: 1. Stable stage IV sacral decubitus with wound VAC, on antibiotics until April 27. 2. Stable T4 paraplegia with inability to cooperate with therapy very well. 3. Bilateral heel decubitus with bandages. 4. Recurrent aspiration, resolved, but with the patient signing a waiver risk and with no cough and normalized chest x-ray. PLAN: Continue IV meropenem. Continue wound VAC. Continue to stress the patient the need to exercise arms. Continue wound care of heel decubitus. Job ID: [id number]
--- NOTE | 2018-04-02 11:50 | PRG ---
DATE OF SERVICE: 04/02/2018 SUBJECTIVE: The patient feels well, lying in bed, having no cough or shortness of breath, and no pain. OBJECTIVE: VITAL SIGNS: Temperature is 98.1, pulse 97, respirations 20, O2 saturations 97% on 2 L, and blood pressure 129/67. LUNGS: Clear. CARDIAC: Showed regular rhythm. ABDOMEN: Soft and nontender. Wound VAC is in place. Both heels are bandaged. ASSESSMENT: 1. Stage IV sacral decubitus with wound VAC functioning well, on IV meropenem until April 27. 2. Bilateral heel decubitus, bandaged with Medihoney and Mepilex, healing well. 3. Stable stage T4 paraplegia. No change. 4. Recurrent aspiration risk with the patient signing waiver risk and with no aspiration at this time. Job ID: [id number]
[2018-04-03] MEDS: Meropenem 1 GM in Sodium Chloride 0.9% 100 ML IVPB SCH ×3 (06:03→21:57)
[2018-04-03] MEDS: Mometasone/Formoterol 60 PUFF AER INH SCH ×2 (06:03→18:28)
[2018-04-03] MEDS: Polyethylene Glycol 3350 17 GM Packet PO SCH (08:58)
[2018-04-03] MEDS: Docusate 100 MG CAP PO SCH (08:59)
[2018-04-03] MEDS: Acetaminophen 500 MG TAB PO PRN (08:59)
[2018-04-03] MEDS: guaiFENesin ER 600 MG TAB PO SCH ×2 (08:59→21:02)
[2018-04-03] MEDS: Thiamine 100 MG TAB PO SCH (08:59)
[2018-04-03] MEDS: Aspirin 81 mg Enteric Coated Tablet PO SCH (08:59)
[2018-04-03] MEDS: Famotidine 20 MG TAB PO SCH ×2 (08:59→21:02)
[2018-04-03] MEDS: traMADol HCl 50 MG TAB PO PRN (09:00)
[2018-04-04] MEDS: Mometasone/Formoterol 60 PUFF AER INH SCH ×2 (05:56→18:11)
[2018-04-04] MEDS: Meropenem 1 GM in Sodium Chloride 0.9% 100 ML IVPB SCH ×3 (05:56→21:10)
--- NOTE | 2018-04-04 06:35 | PRG ---
DATE OF SERVICE: 04/03/2018 SUBJECTIVE: The patient feels well with no cough, shortness of breath, nausea, vomiting, or chest pain. He has been working with his arms on his trapeze. He is undergoing wound care of his sacral decubitus and heel decubitus. He is still eating despite risk of aspiration and has signed a waiver. OBJECTIVE: VITAL SIGNS: Shows his blood pressure is 131/72, temperature is 98, pulse 95, respirations 18, O2 sats 96% on 2 L. LUNGS: Clear. CARDIAC EXAMINATION: Showed regular rhythm. ABDOMEN: Soft and nontender. SKIN/EXTREMITIES: Healing bilateral heel decubitus with bandage in place and wound VAC in place over sacral decubitus. ASSESSMENT: 1. Stable stage IV sacral decubitus, on meropenem until April 27. 2. Stable T4 paraplegia, inability to maintain ADLs. 3. Bilateral heel decubitus, responding to conservative treatment with Medihoney and Mepilex. 4. Recurrent aspiration and atelectasis, resolved. We will continue to monitor closely. PLAN: 1. CBC and comprehensive metabolic in a.m. 2. Continue wound care with wound VAC. 3. Continue meropenem until April 27. Job ID: [id number]
[2018-04-04 07:31] LABS: #Basophils 0.1 thou/uL (0.0-0.2); #Eosinphils 0.9 thou/uL (0.0-0.7); #Lymphocytes 1.5 thou/uL (1.20-3.40); #Monocytes 0.8 thou/uL (0.11-0.59); #Neutrophils 6.3 thou/uL (1.40-6.50); %Basophils 1.3 % (0.0-1.0); %Eosinophils 9.7 % (0.0-10.0); %Lymphocytes 15.7 % (21.0-51.0); %Monocytes 8.6 % (0.0-10.0); %Neutrophils 64.6 % (42.0-75.0); Hemoglobin 9.2 g/dL (14.0-18.0); Mean Corpuscular Hemoglobin 29.2 pg (27.0-31.0); Mean Corpuscular Volume 91.3 fL (78.0-98.0); Mean Platelet Volume 5.2 fL (7.4-10.4); Platelet Count 597 thou/uL (130-400); RBC Distribution Width 14.2 % (11.5-14.5); Red Blood Cell (RBC) Count 3.16 mill/uL (4.70-6.10); White Blood Cell (WBC) Count 9.8 thou/uL (4.8-10.8)
[2018-04-04 07:44] LABS: ALT (SGPT) 21 U/L (8-55); AST (SGOT) 23 U/L (5-34); Albumin 2.7 g/dL (3.4-4.8); Alkaline Phosphatase 89 U/L (40-150); Anion Gap 11 mmol/L (10-20); BUN (Urea Nitrogen) 20 mg/dL (8.4-25.7); Bilirubin, Total 0.3 mg/dL (0.2-1.2); Calc. Creatinine Clearance 141 mL/min (70-130); Calcium 9.5 mg/dL (7.8-10.44); Carbon Dioxide 25 mmol/L (23-31); Chloride 101 mmol/L (98-107); Estimated GFR-MDRD Greater than 90; Globulin 4.6 g/dL (2.4-3.5); Glucose 96 mg/dL (83-110); Potassium 3.9 mmol/L (3.5-5.1); Protein, Total 7.3 g/dL (5.8-8.1); Sodium 133 mmol/L (136-145)
[2018-04-04] MEDS: Famotidine 20 MG TAB PO SCH ×2 (08:40→21:09)
[2018-04-04] MEDS: guaiFENesin ER 600 MG TAB PO SCH ×2 (08:40→21:09)
[2018-04-04] MEDS: Thiamine 100 MG TAB PO SCH (08:40)
[2018-04-04] MEDS: Aspirin 81 mg Enteric Coated Tablet PO SCH (08:40)
[2018-04-04] MEDS: Polyethylene Glycol 3350 17 GM Packet PO SCH (08:40)
[2018-04-04] MEDS: Docusate 100 MG CAP PO SCH (08:40)
[2018-04-05] MEDS: Meropenem 1 GM in Sodium Chloride 0.9% 100 ML IVPB SCH ×3 (05:55→20:59)
[2018-04-05] MEDS: Mometasone/Formoterol 60 PUFF AER INH SCH ×2 (05:56→18:08)
[2018-04-05] MEDS: Docusate 100 MG CAP PO SCH (09:02)
[2018-04-05] MEDS: Aspirin 81 mg Enteric Coated Tablet PO SCH (09:02)
[2018-04-05] MEDS: guaiFENesin ER 600 MG TAB PO SCH ×2 (09:03→20:56)
[2018-04-05] MEDS: Famotidine 20 MG TAB PO SCH ×2 (09:03→20:56)
[2018-04-05] MEDS: Polyethylene Glycol 3350 17 GM Packet PO SCH (09:03)
[2018-04-05] MEDS: Thiamine 100 MG TAB PO SCH (09:04)
[2018-04-06] MEDS: Meropenem 1 GM in Sodium Chloride 0.9% 100 ML IVPB SCH ×3 (05:47→21:30)
[2018-04-06] MEDS: Mometasone/Formoterol 60 PUFF AER INH SCH ×2 (05:48→18:33)
[2018-04-06] MEDS: Polyethylene Glycol 3350 17 GM Packet PO SCH (08:52)
[2018-04-06] MEDS: Famotidine 20 MG TAB PO SCH ×2 (08:53→21:31)
[2018-04-06] MEDS: Acetaminophen 500 MG TAB PO PRN (08:53)
[2018-04-06] MEDS: guaiFENesin ER 600 MG TAB PO SCH ×2 (08:53→21:31)
[2018-04-06] MEDS: Thiamine 100 MG TAB PO SCH (08:53)
[2018-04-06] MEDS: Docusate 100 MG CAP PO SCH (08:54)
[2018-04-06] MEDS: traMADol HCl 50 MG TAB PO PRN (08:54)
[2018-04-06] MEDS: Aspirin 81 mg Enteric Coated Tablet PO SCH (08:54)
--- NOTE | 2018-04-06 18:19 | PRG ---
DATE OF SERVICE: 04/04/2018 SUBJECTIVE: The patient feels well, lying in the bed, has been working with his arms, has not been getting out of bed. He has been tolerating the wound VAC and has been eating well with no cough. OBJECTIVE: VITAL SIGNS: Blood pressure is 121/74, temperature is 97, pulse 97, respirations 20, and O2 saturations 97% on 2 L. LUNGS: Clear. CARDIAC: Regular rhythm. ABDOMEN: Soft and nontender. Wound VAC is in place. EXTREMITIES: Bilateral heel decubitus are bandaged. LABORATORY: Show white count 9800, hematocrit 28, hemoglobin 9. Sodium is 133, potassium 3.9, chloride 101, bicarb 25, BUN 20, creatinine 0.57. Albumin 2.7, which is improved from a previous albumin of 2.5, globulin 4.6. Urinalysis shows 7 to 10 white cells. Carvalho catheter in place. Intake and output are 857 in and 1775 out. ASSESSMENT: 1. Resolving sacral decubitus, stage IV, on meropenem and wound VAC until 04/27 with granulation tissue apparent. 2. Recurrent aspiration risks with recent aspiration, now resolved and no further aspiration. 3. T4 paraplegia with subsequent difficulty with atelectasis and poor respiratory intake, improving with incentive spirometer. 4. Bilateral heel decubitus, stable. PLAN: 1. Continue wound VAC and wound care of the bilateral heel decubitus. 2. Continue IV meropenem until 04/27. 3. Continue to monitor for recurrent aspiration. Job ID: [id number]
--- NOTE | 2018-04-06 19:16 | PRG ---
DATE OF SERVICE: 04/06/2018 SUBJECTIVE: The patient feels well, sitting up, eating, feeling stronger. No cough or shortness of breath. He is asking when he may be considered for start doing therapy. OBJECTIVE: VITAL SIGNS: Shows temperature 97.7, pulse 93, respirations 20, and O2 saturations 95% on room air, and blood pressure 116/74. LUNGS: Clear. CARDIAC: Showed regular rhythm. ABDOMEN: Soft and nontender. EXTREMITIES: Wound VAC is in place. Heels are bandaged. ASSESSMENT: 1. Resolving bilateral heel decubitus, stage IV sacral decubitus, on meropenem and wound VAC until 04/27. 2. Improving deconditioning and possibly restarting therapy to next week. 3. Stable T4 paraplegia with increased upper body strength and decreased risk of atelectasis. 4. Persistent risk of aspiration, but the patient has waived the risk and is doing safe chewing techniques with no problems. PLAN: 1. Continue IV meropenem. 2. Continue wound VAC. 3. Continue bandage on heels and wound care. 4. Consider repeat PT next week. Job ID: [id number]
[2018-04-07] MEDS: Mometasone/Formoterol 60 PUFF AER INH SCH ×2 (05:32→18:55)
[2018-04-07] MEDS: Meropenem 1 GM in Sodium Chloride 0.9% 100 ML IVPB SCH ×3 (05:32→22:10)
[2018-04-07] MEDS: Famotidine 20 MG TAB PO SCH ×2 (09:16→22:10)
[2018-04-07] MEDS: Docusate 100 MG CAP PO SCH (09:16)
[2018-04-07] MEDS: Aspirin 81 mg Enteric Coated Tablet PO SCH (09:16)
[2018-04-07] MEDS: guaiFENesin ER 600 MG TAB PO SCH ×2 (09:16→22:10)
[2018-04-07] MEDS: Thiamine 100 MG TAB PO SCH (09:16)
[2018-04-07] MEDS: Polyethylene Glycol 3350 17 GM Packet PO SCH (09:17)
[2018-04-07] MEDS: Acetaminophen 500 MG TAB PO PRN (16:30)
[2018-04-07] MEDS: traMADol HCl 50 MG TAB PO PRN (16:30)
[2018-04-08] MEDS: Meropenem 1 GM in Sodium Chloride 0.9% 100 ML IVPB SCH ×3 (05:28→21:01)
[2018-04-08] MEDS: Mometasone/Formoterol 60 PUFF AER INH SCH ×2 (05:28→19:00)
[2018-04-08] MEDS: Famotidine 20 MG TAB PO SCH ×2 (08:50→21:02)
[2018-04-08] MEDS: Thiamine 100 MG TAB PO SCH (08:50)
[2018-04-08] MEDS: guaiFENesin ER 600 MG TAB PO SCH ×2 (08:50→21:01)
[2018-04-08] MEDS: Aspirin 81 mg Enteric Coated Tablet PO SCH (08:50)
[2018-04-08] MEDS: Acetaminophen 500 MG TAB PO PRN (08:50)
[2018-04-08] MEDS: traMADol HCl 50 MG TAB PO PRN (08:51)
[2018-04-09] MEDS: Mometasone/Formoterol 60 PUFF AER INH SCH ×2 (06:05→18:12)
[2018-04-09] MEDS: Meropenem 1 GM in Sodium Chloride 0.9% 100 ML IVPB SCH ×3 (06:06→20:54)
--- NOTE | 2018-04-09 07:55 | PRG ---
DATE OF SERVICE: 04/05/2018 SUBJECTIVE: The patient feels well, sitting up in bed, eating his supper. No cough, shortness of breath, headaches, or dizziness. OBJECTIVE: VITAL SIGNS: Show his blood pressure is 164/87, temperature 97, pulse 99, respirations 18, and O2 sats 97% on 2 L. LUNGS: Clear. CARDIAC: Regular rhythm. ABDOMEN: Soft and nontender. SKIN/EXTREMITIES: Show no edema. There are bilateral healed decubitus bandages. A wound VAC in place on the sacrum. ASSESSMENT: 1. Resolving stage IV sacral decubitus, on meropenem, wound VAC. 2. Stable T4 paraplegia with increasing upper body strength and decreasing risk of atelectasis. 3. Risk of aspiration appears to be stable as the patient signed waiver risk and does not have any problems with aspiration. 4. Bilateral heel decubitus, healing well. PLAN: 1. Continue wound care and wound VAC. 2. Continue IV meropenem. 3. Continue to monitor for recurrent aspirations. 4. Continue incentive spirometry. 5. Wean off oxygen in the future. Job ID: [id number]
[2018-04-09] MEDS: Aspirin 81 mg Enteric Coated Tablet PO SCH (08:13)
[2018-04-09] MEDS: guaiFENesin ER 600 MG TAB PO SCH ×2 (08:14→20:48)
[2018-04-09] MEDS: Thiamine 100 MG TAB PO SCH (08:14)
[2018-04-09] MEDS: Famotidine 20 MG TAB PO SCH ×2 (08:14→20:48)
--- NOTE | 2018-04-09 17:43 | PRG ---
DATE OF SERVICE: 04/07/2018 SUBJECTIVE: The patient feels well, like more cheerful, not agitated, and cooperative. OBJECTIVE: VITAL SIGNS: Show temperature is 97.2, pulse 98, respirations 18, O2 sats 96% on 2 L, blood pressure 109/56. LUNGS: Clear. CARDIAC: Showed regular rhythm. ABDOMEN: Soft and nontender. EXTREMITIES: Wound VAC is in place and functioning well. Bilateral heel decubitus covered. ASSESSMENT: 1. Resolving stage IV sacral decubitus, on IV meropenem until 04/27. 2. Stable T4 paraplegia with increasing upper body strength. 3. Recurrent aspiration and atelectasis appeared to be improved with incentive spirometry. 4. Bilateral heel decubitus secondary to inability to move legs. PLAN: Continue wound VAC. Continue IV meropenem. Continue wound care of heels. Continue to stress incentive spirometry. Continue to discuss possible restarting of PT next week. Job ID: [id number]
--- NOTE | 2018-04-09 17:56 | PRG ---
DATE OF SERVICE: 04/08/2018 SUBJECTIVE: The patient feels well with no complaints. He is eating well. He is having no cough, shortness of breath, or chest pain. OBJECTIVE: VITAL SIGNS: Blood pressure is 101/60, temperature 97.5, pulse 98, respirations 18, and O2 sats 94% on 2 L. LUNGS: Clear. CARDIAC: Showed regular rhythm. ABDOMEN: Soft and nontender. SKIN/EXTREMITIES: Display no edema, clubbing, cyanosis with bilateral heel decubitus covered with bandage and a stage IV sacral decubitus with wound VAC. ASSESSMENT: 1. Stable T4 paraplegia with subsequent stage IV decubitus of the sacrum and bilateral heel decubitus with wound VAC in place and wound care of the heels. 2. Infection with stage IV decubitus, on meropenem until April 27. 3. Recurrent aspiration risk and atelectasis risk, appear to have improved with increase in incentive spirometry and we will continue to monitor closely. PLAN: 1. Continue wound VAC. 2. Continue IV meropenem. 3. Continue incentive spirometry. 4. Discuss further PT. Job ID: [id number]
[2018-04-10] MEDS: Meropenem 1 GM in Sodium Chloride 0.9% 100 ML IVPB SCH ×3 (05:13→21:14)
[2018-04-10] MEDS: Mometasone/Formoterol 60 PUFF AER INH SCH ×2 (05:15→18:14)
[2018-04-10] MEDS: Aspirin 81 mg Enteric Coated Tablet PO SCH (08:33)
[2018-04-10] MEDS: Famotidine 20 MG TAB PO SCH ×2 (08:33→21:13)
[2018-04-10] MEDS: Thiamine 100 MG TAB PO SCH (08:34)
[2018-04-10] MEDS: guaiFENesin ER 600 MG TAB PO SCH ×2 (08:34→21:13)
[2018-04-10] MEDS: traMADol HCl 50 MG TAB PO PRN ×2 (15:21→21:12)
--- NOTE | 2018-04-10 18:29 | PRG ---
DATE OF SERVICE: 04/09/2018 SUBJECTIVE: The patient feels well, eating, visiting with family. He is concerned mainly about diarrhea, although the nurses state that it has not been excessive. OBJECTIVE: VITAL SIGNS: Show pulse 106, respirations 18, O2 saturations 93% on 2 L. Intake and output, the patient has had 1 to 2 bowel movements daily. LUNGS: Clear. CARDIAC: Showed regular rhythm. ABDOMEN: Soft and nontender. SKIN/EXTREMITIES: Showed wound VAC in place over sacrum, functioning well. Bilateral heel decubitus covered. ASSESSMENT: 1. Resolving sacral decubitus. 2. Resolving bilateral heel decubitus. 3. Persistent loose stools and may start on Metamucil to see if it gives some form. 4. T4 quadriplegia, stable. 5. Recurrent aspiration risk. No aspiration and improving respiratory function. PLAN: Metamucil one scoop daily. Continue wound VAC. Continue IV meropenem. Obtain one stool for C diff and discuss further therapy with PT. Job ID: [id number]
[2018-04-11] MEDS: Meropenem 1 GM in Sodium Chloride 0.9% 100 ML IVPB SCH ×3 (05:30→21:07)
[2018-04-11] MEDS: Mometasone/Formoterol 60 PUFF AER INH SCH ×2 (05:31→18:47)
[2018-04-11] MEDS: Cyclobenzaprine 10 MG TAB PO PRN (08:48)
[2018-04-11] MEDS: Thiamine 100 MG TAB PO SCH (08:48)
[2018-04-11] MEDS: Aspirin 81 mg Enteric Coated Tablet PO SCH (08:48)
[2018-04-11] MEDS: Metamucil PACK PO SCH (08:49)
[2018-04-11] MEDS: Famotidine 20 MG TAB PO SCH ×2 (08:49→21:07)
[2018-04-11] MEDS: guaiFENesin ER 600 MG TAB PO SCH ×2 (08:49→21:07)
--- NOTE | 2018-04-11 18:32 | PRG ---
DATE OF SERVICE: 04/10/2018 SUBJECTIVE: The patient feels well. No complaints. Eating well. Not having any further diarrhea. Having no nausea or vomiting. OBJECTIVE: VITAL SIGNS: Show his blood pressure is 101/61, temperature is 97, pulse 98, respirations 18, O2 saturations 94% on 2 L. LUNGS: Clear. CARDIAC: Showed regular rhythm. ABDOMEN: Soft and nontender. SKIN/EXTREMITIES: Show wound VAC in place in the sacrum, functioning well. Bilateral heels, covered and functioning well. ASSESSMENT: 1. Resolving sacral decubitus. 2. Stable T4 paraplegia. 3. Healing bilateral heel decubitus. 4. Resolved atelectasis in right lung. 5. Risk of aspiration, but no aspiration at this time. PLAN: 1. Continue IV meropenem. 2. Continue wound VAC. 3. Continue to heal decubitus. 4. Discuss with PT. Job ID: [id number]
[2018-04-12] MEDS: Meropenem 1 GM in Sodium Chloride 0.9% 100 ML IVPB SCH ×3 (05:08→21:32)
[2018-04-12] MEDS: Cyclobenzaprine 10 MG TAB PO PRN (05:08)
[2018-04-12] MEDS: Mometasone/Formoterol 60 PUFF AER INH SCH ×2 (05:09→18:53)
[2018-04-12] MEDS: Thiamine 100 MG TAB PO SCH (08:56)
[2018-04-12] MEDS: guaiFENesin ER 600 MG TAB PO SCH ×2 (08:56→21:31)
[2018-04-12] MEDS: Aspirin 81 mg Enteric Coated Tablet PO SCH (08:56)
[2018-04-12] MEDS: Metamucil PACK PO SCH (08:56)
[2018-04-12] MEDS: Famotidine 20 MG TAB PO SCH ×2 (08:56→21:31)
[2018-04-12] MEDS: Acetaminophen 500 MG TAB PO PRN (16:27)
[2018-04-12] MEDS: traMADol HCl 50 MG TAB PO PRN (16:27)
--- NOTE | 2018-04-12 16:57 | PRG ---
DATE OF SERVICE: 04/11/2018 SUBJECTIVE: The patient feels well. He is asking for more therapy. He is having no cough, nausea, or vomiting. He is having no fever or chills. OBJECTIVE: VITAL SIGNS: Temperature is 97.7, pulse 101, respirations 18, O2 sats 94% on 2 L, blood pressure 120/63. LUNGS: Clear. CARDIAC: Regular rhythm. ABDOMEN: Soft and nontender. Wound VAC is in place, functioning well. EXTREMITIES: Bilateral heel decubitus, bandaged and healing well. ASSESSMENT: 1. Resolving infection of stage IV decubitus, on meropenem until April 27. 2. Stable T4 paraplegia with no further orthostatic changes, but still not moving and ask for more therapy. 3. Bilateral heel decubitus, stable and bandaged. 4. Recurrent aspiration risk and atelectasis appears to be improved and will repeat Speech Therapy consult. Job ID: [id number]
--- NOTE | 2018-04-12 17:41 | PRG ---
DATE OF SERVICE: 04/12/2018 SUBJECTIVE: The patient feels well except for persistent upper back and neck pain for the last several days to the point that he cannot do any movement without pain. He is not having any shortness of breath or cough, fever or chills. The pain is similar to the pain he had with his metastatic esophageal cancer. OBJECTIVE: VITAL SIGNS: Show blood pressure is 114/63, temperature is 97, O2 sats 94% on 2 L, pulse 96, respirations 20, afebrile. LUNGS: Clear. CARDIAC: Showed regular rhythm. ABDOMEN: Soft and nontender. Wound VAC is in place, functioning well. MUSCULOSKELETAL: Tenderness to palpation of the shoulders and upper back. ASSESSMENT: 1. Current upper back pain, possibly due to metastatic lesion. We will obtain CT scan of thoracic spine and chest. 2. Stage IV sacral decubitus, healing well with wound VAC in place, on meropenem until April 27. 3. Bilateral heel decubitus, healing well with bandages. 4. Recurrent aspiration, appears to have resolved the risk, and we will evaluate with Speech Therapy tomorrow. 5. Orthostatic hypotension, therapy in the past and we will evaluate tomorrow. Job ID: [id number]
[2018-04-13 05:25] LABS: Band 6 % (5-11); Eosinophils 8 % (0-10); Hemoglobin 8.7 g/dL (14.0-18.0); Hypochromia SLIGHT = 6-15 cells (100X) (0-5/hpf); Lymphocytes 16 % (21-51); MDiff Complete? YES; Mean Corpuscular HGB CONC 31.2 g/dL (32.0-36.0); Mean Corpuscular Hemoglobin 28.4 pg (27.0-31.0); Mean Platelet Volume 5.4 fL (7.4-10.4); Microcytosis SLIGHT = 6-15 cells (100X) (0-5/hpf); Monocytes 6 % (0-10); Neutrophil 63 % (42-75); Platelet Count 519 thou/uL (130-400); Platelet Morphology Comment Appears Increased; RBC Distribution Width 14.1 % (11.5-14.5); Red Blood Cell (RBC) Count 3.04 mill/uL (4.70-6.10); White Blood Cell (WBC) Count 8.8 thou/uL (4.8-10.8)
[2018-04-13 05:37] LABS: ALT (SGPT) 18 U/L (8-55); AST (SGOT) 19 U/L (5-34); Albumin 2.6 g/dL (3.4-4.8); Alkaline Phosphatase 89 U/L (40-150); Anion Gap 9 mmol/L (10-20); BUN (Urea Nitrogen) 20 mg/dL (8.4-25.7); Bilirubin, Total 0.4 mg/dL (0.2-1.2); Calc. Creatinine Clearance 134 mL/min (70-130); Calcium 9.2 mg/dL (7.8-10.44); Carbon Dioxide 27 mmol/L (23-31); Chloride 105 mmol/L (98-107); Estimated GFR-MDRD Greater than 90; Globulin 4.4 g/dL (2.4-3.5); Glucose 92 mg/dL (83-110); Potassium 4.1 mmol/L (3.5-5.1); Sodium 137 mmol/L (136-145)
[2018-04-13] MEDS: Meropenem 1 GM in Sodium Chloride 0.9% 100 ML IVPB SCH ×3 (05:37→21:30)
[2018-04-13] MEDS: Mometasone/Formoterol 60 PUFF AER INH SCH ×2 (05:42→18:06)
--- NOTE | 2018-04-13 08:55 | CT ---
NONCONTRAST CT THORAX: DATE: 04/13/2018. HISTORY: Metastatic esophageal cancer. Followup evaluation. COMPARISON: 03/12/2018. FINDINGS: There is a right subclavian MediPort catheter again noted in place with the tip terminating in the di stal SVC. Vascular calcifications are seen in the coronary arteries as well as thoracic aorta. There are calci fications involving the aortic valve. Lack of intravenous contrast limits sensitivity for evaluation of the vascular structures as well as limited evaluation of the mediastinum and for evaluation of ly mphadenopathy. However, no definite enlarged lymph nodes are seen by CT size criteria on this nonenh anced CT exam. Previously noted collapse of the right lower lobe has resolved. There is a persistent small right ple ural effusion, but the pleural effusion has diminished from the prior study. A very tiny left pleura l effusion is present with associated atelectasis. There is persistent debris within right lower lob e bronchi; although, this has improved from prior exam. There is an area of parenchymal density seen in the right infrahilar region probably related to a combination of pulmonary artery as well as cathy cent volume loss and debris within lower lobe bronchi; although, a mass could not be entirely exclude d based on this exam without IV contrast. No discrete pulmonary nodule is seen. Emphysematous changes are seen throughout the lungs bilaterall y. Again noted are postsurgical changes involving the upper thoracic spine with laminectomy defect seen extending from C6 to T3 levels. Low-density area posterior to the central canal at the level of the laminectomy defects is again seen. The patient was noted to have a pseudomeningocele which may accou nt for the low-density areas posterior to the central canal at these levels, but this is certainly wh en compared to prior MRI on 09/25/2017. There is a remote ununited fracture involving the left merchandise processor olateral 9th rib. Degenerative changes are seen in the spine. No lytic or sclerotic osseous lesions are appreciated. There is an 11 mm hypodense lesion seen within the region of the dome of the liver overall stable in size when compared to CT abdomen on 03/07/[address] thorax on 11/01/2016. IMPRESSION: 1. Improvement in right pleural effusion with only a small right pleural effusion noted on today's e xam. In addition, there has been improvement in consolidation and collapse of the right lower lobe. There is persistent debris within right lower lobe bronchi, although this has improved from prior ex am. There is an area of parenchymal density seen in the right infrahilar region probably related to a combination of pulmonary artery as well as adjacent volume loss and debris within lower lobe bronch i; although, a mass could not be entirely excluded based on this exam without IV contrast. 2. No evidence of lymphadenopathy on this nonenhanced CT scan exam. 3. Very small right and very tiny left pleural effusions with associated atelectasis. 4. Chronic obstructive pulmonary disease. 5. Stable hypodense lesion measuring 11 mm in the dome of the liver. 6. Stable postoperative changes related to laminectomy defects involving the lower cervical and uppe r thoracic spine with area of decreased density posterior to the central canal at the level of duane ctomy defect. 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 POS: KIRA
--- NOTE | 2018-04-13 09:36 | CT ---
NONCONTRAST CT THORACIC SPINE: DATE: 04/13/2018. HISTORY: Esophageal cancer with metastatic disease to the thoracic spine. The patient complains of increasing pain in the T4 through T7 region. COMPARISON: MRI thoracic spine on 09/25/[address] thorax on 03/12/2018. FINDINGS: Again noted are laminectomy defects involving the lower cervical spine which were shown to begin at t he level of the C6 vertebral body which is incompletely imaged on this examination with laminectomy d efect extending to the level of the T3 vertebral body. There is decreased density which appears to b e fluid density seen posterior to the central canal at the level of laminectomy defects, and prior MR I demonstrated findings compatible with a pseudomeningocele, although this has significantly decrease d in size on the current study compared to MRI examination is unchanged when compared to study on 02/27. There is evidence of residual intramedullary neoplastic process centered at the T1-2 level o n prior MRI examination. However, this is unable to be evaluated based on CT exam due to modality of imaging. No lytic or sclerotic osseous lesions are appreciated. There are multilevel degenerative changes see n throughout the thoracic spine. There is bilateral neural foraminal narrowing at the C6-7 level due to uncinate process hypertrophy and facet degenerative changes. There is moderate to severe right-s ided neural foraminal narrowing at the T3-4 level due to bony encroachment on the right neural forame n with mild left-sided neural foraminal narrowing. The remainder of the neural foramen through the t horacic spine demonstrate no significant narrowing. Central spinal canal is patent without significa nt narrowing present. Paravertebral soft tissues demonstrate a normal nonenhanced CT appearance. There is very tiny left pleural effusion with atelectasis as well as small right pleural effusion and atelectasis. However, this has improved from the study on 03/12/2018. There is an area of parenchym al increased density in the right hilar/infrahilar region probably related to superimposition of vasc ular structures as well as debris within adjacent bronchi given the mass-like appearance. However, w ithout IV contrast, a mass in this region could not be entirely excluded. Vascular calcifications are seen in the coronary arteries as well as involving portions of the thorac ic aorta. There is partial visualization of a right subclavian vein MediPort catheter. IMPRESSION: 1. No lytic or sclerotic osseous lesions are seen to suggest osseous metastatic disease based on CT evaluation. 2. Postsurgical changes related to laminectomy defects extending from the C6 to T1 vertebral body wi th decreased attenuation seen posterior to the thecal sac at these levels shown to represent pseudome ningocele on prior MRI examination which has now decreased in size compared to the MRI in 2018 but is unchanged compared to CT thorax on 03/12/2018. 3. Parenchymal changes at the right lung base with associated pleural effusion. There is debris pre sent within right lower lobe bronchi. There is a mass-like area of decreased attenuation in the righ t infrahilar region probably related to a combination of the pulmonary artery as well as debris withi n adjacent bronchi as opposed to mass, although this is difficult to delineate without IV contrast. 4. No lytic or sclerotic osseous lesions are appreciated in the thoracic spine. 5. Very tiny left pleural effusion and atelectasis. 6. Prior MRI examination mentioned area of intramedullary enhancement at the T1-2 level which is markel ble to be evaluated on CT examination. This would be better evaluated with MRI. POS: KIRA
[2018-04-13] MEDS: Famotidine 20 MG TAB PO SCH ×2 (09:40→21:29)
[2018-04-13] MEDS: Thiamine 100 MG TAB PO SCH (09:41)
[2018-04-13] MEDS: guaiFENesin ER 600 MG TAB PO SCH ×2 (09:41→21:29)
[2018-04-13] MEDS: Aspirin 81 mg Enteric Coated Tablet PO SCH (09:41)
[2018-04-13] MEDS: Metamucil PACK PO SCH (09:42)
[2018-04-13] MEDS: Cyclobenzaprine 10 MG TAB PO PRN (21:32)
[2018-04-14] MEDS: Meropenem 1 GM in Sodium Chloride 0.9% 100 ML IVPB SCH ×3 (05:27→22:14)
[2018-04-14] MEDS: Mometasone/Formoterol 60 PUFF AER INH SCH ×2 (05:28→18:15)
--- NOTE | 2018-04-14 07:59 | PRG ---
DATE OF SERVICE: 04/14/2018 SUBJECTIVE: Mr. Durbin is a 72-year-old very unfortunate white male. He has esophageal cancer with metastasis to the spine. He had to have surgical removal of this metastasis to the spine, which gave him paraplegia of the motor nerves T3 through 4. He is bed bound and chair bound. He has decubitus on the sacral area and bilateral decubitus on his heels. He was transferred to [facility] for continued antibiotic therapy and physical therapy. OBJECTIVE: VITAL SIGNS: Today reveal blood pressure 133/69, pulse 100, respirations 18, O2 saturation 93% on 2 L nasal cannula, and T-max 98.1. PHYSICAL EXAMINATION: GENERAL: This is a well-developed, well-nourished, pleasant white male, in no apparent distress at this time. HEENT: Reveals normocephalic, nontraumatic cranium. Pupils are equally round and reactive. Extraocular movements are intact. Nose and throat are dry. NECK: Supple without masses, nodes, or bruits. CHEST: Clear to auscultation. No rales, no rhonchi, no wheezes or cough are heard. HEART: Reveals a regular rate and rhythm without murmurs, gallops, or rubs. ABDOMEN: Soft, nontender without organomegaly. Normal bowel sounds noted in all 4 quadrants. No rebound or guarding is noted. : Deferred. EXTREMITIES: Reveal no clubbing, cyanosis, or edema. ASSESSMENT: 1. Esophageal cancer with metastasis to the thoracic spine. 2. Paraplegia, T3 and T4. 3. Stage IV decubitus in the sacrum requiring wound care, debridement, and long-term antibiotics. 4. Prior history of respiratory problems with mucous plugging secondary to his paraplegia and paralyzed diaphragm. 5. Neurogenic bladder with Carvalho catheter. 6. Prior growing Pseudomonas sensitive to meropenem. PLAN: 1. Continue wound care. 2. Continue keeping the patient turned in bed. 3. Wound VAC as needed. 4. Meropenem for total of 6 weeks. 5. Stress incentive spirometry and handheld nebulizers. 6. Aggressive pulmonary toilet. 7. Stress ulcer prophylaxis. 8. Decubitus precautions. 9. DVT prophylaxis per Primary Service. 10. Continue PT and OT. Job ID: [id number]
[2018-04-14] MEDS: Aspirin 81 mg Enteric Coated Tablet PO SCH (09:07)
[2018-04-14] MEDS: guaiFENesin ER 600 MG TAB PO SCH ×2 (09:08→20:51)
[2018-04-14] MEDS: Metamucil PACK PO SCH (09:08)
[2018-04-14] MEDS: Famotidine 20 MG TAB PO SCH ×2 (09:08→20:51)
[2018-04-14] MEDS: Thiamine 100 MG TAB PO SCH (09:09)
[2018-04-14] MEDS: Cyclobenzaprine 10 MG TAB PO PRN (20:51)
[2018-04-15] MEDS: Meropenem 1 GM in Sodium Chloride 0.9% 100 ML IVPB SCH ×2 (05:38→14:04)
[2018-04-15] MEDS: Mometasone/Formoterol 60 PUFF AER INH SCH ×2 (05:39→18:05)
--- NOTE | 2018-04-15 08:06 | PRG ---
DATE OF SERVICE: 04/15/2018 SUBJECTIVE: Mr. Durbin is a very pleasant 72-year-old, [place] male who has esophageal cancer with metastasis to the spine. He had surgical removal of the metastasis in the spine, which has given some paraplegia of the motor nerves T3 and T4. He is bed-bound and chair-bound. He is here because of his decubitus on his sacral area and bilateral decubitus on his heels. He was transferred here basically for antibiotic therapy and physical therapy. OBJECTIVE: VITAL SIGNS: Today reveal blood pressure of 157/79, pulse 100 to 101, respirations 18 to 20, O2 saturation 92% to 93% on room air, and T-max 98.1. GENERAL: This is a well-developed, well-nourished, pleasant white male, in no apparent distress at this time. HEENT: Normocephalic, nontraumatic cranium. Pupils are equal, round, reactive. Extraocular movements are intact. Nose and throat are moist this morning. NECK: Supple without masses, nodes, or bruits. CHEST: Reveals breath sounds are distant. No rales, no rhonchi, no wheezes are noted. HEART: Reveals a regular rate and rhythm without murmurs, gallops, or rubs. ABDOMEN: Soft, nontender without organomegaly. Normal bowel sounds are noted in all 4 quadrants. The patient has no rebound or guarding. He is not constipated. : Deferred. EXTREMITIES: Reveal no clubbing, cyanosis, or edema. ASSESSMENT: 1. Esophageal cancer with metastasis to the thoracic spine. 2. Paraplegia, T3 and T4. 3. Stage 4 decubitus of the sacrum, requiring wound care, debridement, and long-term antibiotics. 4. Prior history of respiratory problems with mucous plugging secondary to his paraplegia and paralyzed diaphragm. 5. Neurogenic bladder with Carvalho catheterization. 6. Prior urinary tract infection growing Pseudomonas, sensitive to meropenem. PLAN: 1. Continue wound care. 2. Make sure the patient gets turn q.2 hours. 3. Wound VAC as needed. 4. Meropenem. 5. Incentive spirometry and handheld nebulizer. 6. Aggressive pulmonary toilet. 7. Stress ulcer prophylaxis. 8. Decubitus precautions. 9. DVT prophylaxis per Primary Service. 10. Continue PT and OT. Job ID: [id number]
[2018-04-15] MEDS: Metamucil PACK PO SCH (09:14)
[2018-04-15] MEDS: Aspirin 81 mg Enteric Coated Tablet PO SCH (09:14)
[2018-04-15] MEDS: guaiFENesin ER 600 MG TAB PO SCH ×2 (09:14→21:24)
[2018-04-15] MEDS: Famotidine 20 MG TAB PO SCH ×2 (09:14→21:24)
[2018-04-15] MEDS: Thiamine 100 MG TAB PO SCH (09:15)
[2018-04-15] MEDS: traMADol HCl 50 MG TAB PO PRN ×2 (09:18→21:25)
[2018-04-15] MEDS: Cyclobenzaprine 10 MG TAB PO PRN (21:24)
[2018-04-16] MEDS: Mometasone/Formoterol 60 PUFF AER INH SCH ×2 (05:53→18:23)
[2018-04-16] MEDS: Meropenem 1 GM in Sodium Chloride 0.9% 100 ML IVPB SCH ×3 (08:50→23:20)
[2018-04-16] MEDS: Aspirin 81 mg Enteric Coated Tablet PO SCH (08:52)
[2018-04-16] MEDS: guaiFENesin ER 600 MG TAB PO SCH ×2 (08:52→21:08)
[2018-04-16] MEDS: Thiamine 100 MG TAB PO SCH (08:52)
[2018-04-16] MEDS: Famotidine 20 MG TAB PO SCH ×2 (08:53→21:08)
[2018-04-16] MEDS: Metamucil PACK PO SCH (08:54)
[2018-04-16] MEDS: Cyclobenzaprine 10 MG TAB PO PRN (21:10)
[2018-04-17] MEDS: Mometasone/Formoterol 60 PUFF AER INH SCH ×2 (05:47→18:05)
[2018-04-17] MEDS: Cyclobenzaprine 10 MG TAB PO PRN ×2 (06:08→21:39)
[2018-04-17] MEDS: Famotidine 20 MG TAB PO SCH ×2 (08:41→21:38)
[2018-04-17] MEDS: Meropenem 1 GM in Sodium Chloride 0.9% 100 ML IVPB SCH ×3 (08:41→23:32)
[2018-04-17] MEDS: Thiamine 100 MG TAB PO SCH (08:41)
[2018-04-17] MEDS: guaiFENesin ER 600 MG TAB PO SCH ×2 (08:41→21:38)
[2018-04-17] MEDS: Aspirin 81 mg Enteric Coated Tablet PO SCH (08:41)
[2018-04-17] MEDS: Metamucil PACK PO SCH (08:42)
--- NOTE | 2018-04-17 22:19 | PRG ---
DATE OF SERVICE: 04/17/2018 SUBJECTIVE: The patient feels well, no complaints, eating his food well. No coughing or choking. OBJECTIVE: VITAL SIGNS: Blood pressure is 109/67, temperature 97.6, pulse 96, respirations 18, O2 sats 94% on 2 L. LUNGS: Clear. CARDIAC: Showed regular rhythm. ABDOMEN: Soft and nontender with no masses or organomegaly. SKIN/EXTREMITIES: Display no edema, clubbing, cyanosis. Functioning well sacral wound VAC, bilateral heel coverage with bandage. NEUROLOGICAL: Shows T4 paraplegia. PLAN: 1. Continue wound VAC. 2. Continue . 3. Continue bilateral wound dressing to bilateral heel decubitus. 4. Continue to stress incentive spirometry. 5. Await speech evaluation today. Job ID: [id number]
[2018-04-18] MEDS: Mometasone/Formoterol 60 PUFF AER INH SCH ×2 (05:56→18:23)
--- NOTE | 2018-04-18 07:26 | PRG ---
DATE OF SERVICE: 04/16/2018 SUBJECTIVE: The patient lying in the bed, feels well, cooperating well with nurses, but not having any therapy. He is eating well with no cough, shortness of breath. He is having no pain in his sacrum and site of the wound VAC, which is still functioning well. OBJECTIVE: VITAL SIGNS: Show pulse 93, respirations 18, and O2 sats 94% on 2 L. LUNGS: Clear. CARDIAC: Showed regular rhythm. ABDOMEN: Soft and nontender. SKIN/EXTREMITIES: Showed no edema, clubbing, or cyanosis. NEUROLOGIC: Shows T4 paraplegia. Upper back shows tenderness to palpation. ASSESSMENT: 1. 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 2. Stage IV sacral decubitus, healing well. His wound VAC in place, on meropenem until April 27. 3. Bilateral heel decubitus, stable with bilateral dressing. 4. Recurrent aspiration risk, being evaluated by Speech Therapy tomorrow well with no evidence of recurrent aspiration at this time or atelectasis. PLAN: 1. Continue wound VAC. 2. Continue meropenem until April 27. 3. Continue bilateral heel decubitus dressing. 4. Discuss further PT/OT with Physical Therapy. Job ID: [id number]
[2018-04-18] MEDS: Metamucil PACK PO SCH (08:49)
[2018-04-18] MEDS: Meropenem 1 GM in Sodium Chloride 0.9% 100 ML IVPB SCH ×3 (08:49→23:54)
[2018-04-18] MEDS: Aspirin 81 mg Enteric Coated Tablet PO SCH (08:49)
[2018-04-18] MEDS: guaiFENesin ER 600 MG TAB PO SCH ×2 (08:49→21:38)
[2018-04-18] MEDS: Famotidine 20 MG TAB PO SCH ×2 (08:49→21:38)
[2018-04-18] MEDS: Thiamine 100 MG TAB PO SCH (08:50)
[2018-04-18] MEDS: Cyclobenzaprine 10 MG TAB PO PRN (21:38)
[2018-04-18] MEDS: Acetaminophen 500 MG TAB PO PRN (21:39)
[2018-04-19] MEDS: Mometasone/Formoterol 60 PUFF AER INH SCH ×2 (04:55→18:53)
[2018-04-19 05:51] LABS: Band 3 % (5-11); Eosinophils 5 % (0-10); Hemoglobin 8.7 g/dL (14.0-18.0); Lymphocytes 13 % (21-51); MDiff Complete? YES; Mean Corpuscular HGB CONC 32.9 g/dL (32.0-36.0); Mean Corpuscular Volume 88.3 fL (78.0-98.0); Mean Platelet Volume 5.2 fL (7.4-10.4); Monocytes 3 % (0-10); Neutrophil 76 % (42-75); Platelet Count 447 thou/uL (130-400); Platelet Morphology Comment Appears Adequate; RBC Distribution Width 14.2 % (11.5-14.5); RBC Morphology Normal; Red Blood Cell (RBC) Count 2.98 mill/uL (4.70-6.10); White Blood Cell (WBC) Count 18.3 thou/uL (4.8-10.8)
--- NOTE | 2018-04-19 08:29 | RAD ---
CHEST 1 VIEW: Date: 04/19/18 HISTORY: Pneumonia. COMPARISON: Radiograph dated 03/28/18. FINDINGS: Cord catheter tip in a similar position. The aorta is mildly ectatic. No pneumothorax. There is some scarring about both lung bases. There is a new opacity in the left lung base. IMPRESSION: New opacity in the left lung base may be sequelae of infection. Follow-up recommended after treatment . POS: ARIELLAH
[2018-04-19] MEDS: Meropenem 1 GM in Sodium Chloride 0.9% 100 ML IVPB SCH ×2 (08:56→16:40)
[2018-04-19] MEDS: Famotidine 20 MG TAB PO SCH ×2 (08:57→20:42)
[2018-04-19] MEDS: Aspirin 81 mg Enteric Coated Tablet PO SCH (08:57)
[2018-04-19] MEDS: guaiFENesin ER 600 MG TAB PO SCH ×2 (08:57→20:42)
[2018-04-19] MEDS: Metamucil PACK PO SCH (08:57)
[2018-04-19] MEDS: Thiamine 100 MG TAB PO SCH (08:58)
[2018-04-19] MEDS: Acetaminophen 500 MG TAB PO PRN (08:58)
--- NOTE | 2018-04-19 22:34 | PRG ---
DATE OF SERVICE: 04/18/2018 SUBJECTIVE: The patient feels well, eating well. He has been told by speech that he is safe to eat and is tolerating his diet well. He is not cooperating with therapy, but is comfortable in the bed. OBJECTIVE: VITAL SIGNS: Blood pressure is 106/55, temperature is 99.2, pulse 122, respirations 18, O2 sats 94% on 2 L. LUNGS: Show good breath sounds with no rales or rhonchi. CARDIAC: Showed regular rhythm. ABDOMEN: Soft and nontender. Decubitus is being treated with a functioning wound VAC. EXTREMITIES: The heel decubitus is bandaged and healing well. ASSESSMENT: 1. Resolving sacral decubitus stage IV, on wound VAC with slowly improving wound. On meropenem until 04/27. 2. Bilateral heel decubitus, healing with bandaging. 3. Severe deconditioning, inability to maintain ADLs, but family wishes to have home health and now is cleared by speech and we will discharge with home health. 4. New onset of low-grade fever, tachycardia, and we will get chest x-ray and CBC and stressed the need to not eat while lying down. Job ID: [id number]
--- NOTE | 2018-04-19 22:53 | PRG ---
DATE OF SERVICE: 04/19/2018 SUBJECTIVE: The patient feels well. No cough, shortness of breath, but has been found to have low-grade fever and chest x-ray has been done, which reveals a new left lower lobe infiltrate. OBJECTIVE: VITAL SIGNS: Temperature is 99.1, pulse 114, respirations 20, O2 sats 93% on 2 L cannula. Blood pressure 105/57. LABORATORY DATA: White count elevated at 18,300, hematocrit 26, and hemoglobin 8.7. ASSESSMENT: 1. New aspiration pneumonia secondary to poor feeding techniques. 2. Stable sacral decubitus, stage IV, on wound VAC. 3. Stable T4 paraplegia, status post removal of metastatic esophageal cancer with metastasis to the entire spine on CT scan. 4. Bilateral heel decubitus, healing well. PLAN: Continue meropenem. Stress incentive spirometer. Continue handheld nebulizers. Repeat CBC in the a.m. May need to add another antibiotic if white count does not improve tomorrow. Job ID: [id number]
[2018-04-20] MEDS: Meropenem 1 GM in Sodium Chloride 0.9% 100 ML IVPB SCH ×4 (00:10→22:59)
[2018-04-20] MEDS: Mometasone/Formoterol 60 PUFF AER INH SCH ×2 (05:46→18:57)
[2018-04-20] MEDS: guaiFENesin ER 600 MG TAB PO SCH ×2 (09:10→20:05)
[2018-04-20] MEDS: Thiamine 100 MG TAB PO SCH (09:10)
[2018-04-20] MEDS: Aspirin 81 mg Enteric Coated Tablet PO SCH (09:10)
[2018-04-20] MEDS: Famotidine 20 MG TAB PO SCH ×2 (09:10→20:05)
[2018-04-20] MEDS: Metamucil PACK PO SCH (09:11)
[2018-04-20 12:32] LABS: Hemoglobin 8.6 g/dL (14.0-18.0); MDiff Complete? YES; Mean Corpuscular HGB CONC 32.7 g/dL (32.0-36.0); Mean Corpuscular Volume 88.5 fL (78.0-98.0); Mean Platelet Volume 6.1 fL (7.4-10.4); Platelet Count 411 thou/uL (130-400); Red Blood Cell (RBC) Count 2.98 mill/uL (4.70-6.10)
[2018-04-20 12:34] LABS: Anisocytosis SLIGHT = 6-15 cells (100X) (0-5/hpf); Band 4 % (5-11); Eosinophils 3 % (0-10); Hypochromia SLIGHT = 6-15 cells (100X) (0-5/hpf); Lymphocytes 11 % (21-51); Monocytes 11 % (0-10); Neutrophil 73 % (42-75); Platelet Morphology Comment Appears Adequate
--- NOTE | 2018-04-20 19:52 | CT ---
CT CHEST WITHOUT CONTRAST: 04/20/18 COMPARISON: 04/13/18. HISTORY: Left lower lobe pneumonia. FINDINGS: Limited evaluation of the mediastinal structures due to lack of IV contrast. No mass, lymphadenopathy or hematoma. Stable heart size. The are coronary artery calcifications. There is calcification of th e aortic valve. The visualized aorta has a normal caliber. No periaortic fat stranding. Right sided M ediport catheter is identified. Visualized upper solid organs are unremarkable. Stable hypodensity in the liver. There are bilateral lower lobe areas of consolidation. The overall degree of consolidation has slightly improved in the r ight lung base but has worsened in the left lung base. Stable tiny bleb in the left lower lobe. Small bilateral effusions. There is no pneumothorax. Stable emphysematous changes predominantly in the upp er lobes. There are no lytic or blastic lesions in the osseous structures. Stable postoperative changes in the thoracic spine with known pseudomeningocele. IMPRESSION: Improved aeration of the right lung. Residual opacities do remain likely due to atelectasis or pneumo jose antonio. Worsening opacification of the left lower lobe which may represent interval development of aspir ation or pneumonia. Continued surveillance is recommended. POS: PPP
[2018-04-21] MEDS: Mometasone/Formoterol 60 PUFF AER INH SCH ×2 (05:25→18:11)
[2018-04-21] MEDS: Meropenem 1 GM in Sodium Chloride 0.9% 100 ML IVPB SCH ×3 (08:56→22:58)
[2018-04-21] MEDS: Thiamine 100 MG TAB PO SCH (08:57)
[2018-04-21] MEDS: Aspirin 81 mg Enteric Coated Tablet PO SCH (08:57)
[2018-04-21] MEDS: guaiFENesin ER 600 MG TAB PO SCH ×2 (08:57→20:18)
[2018-04-21] MEDS: Famotidine 20 MG TAB PO SCH ×2 (08:57→20:18)
[2018-04-21] MEDS: Metamucil PACK PO SCH (08:58)
[2018-04-21] MEDS ORDERED: Meropenem 1 GM VIAL ONE (10:07)
--- NOTE | 2018-04-21 12:41 | PRG ---
DATE OF SERVICE: 04/21/2018 SUBJECTIVE: The patient feels well, resting in bed. No complaints of cough, shortness of breath, or chest pain. OBJECTIVE: VITAL SIGNS: Blood pressure is stable at 117/65, pulse 99, respirations 20, O2 saturations 93% on 2L, and temperature is 96.8. LUNGS: Still show good breath sounds. No rales or rhonchi. CARDIAC: Regular rhythm. EXTREMITIES: Stage IV sacral decubitus. Still has wound VAC functioning well. Bilateral heel decubitus, healing well with bandage in place. IMAGING STUDIES: CT scan does show resolving right lower lobe aspiration pneumonia, but persistent left lower lobe infiltrate, consistent with recent aspiration. LABORATORY DATA: Laboratories, however, showed the white count has improved from 18,000 to 15,000. ASSESSMENT: 1. New aspiration pneumonia, appears to be resolving with decreased white count, stable infiltrate and vital signs. 2. Stage IV sacral decubitus, on meropenem until 04/27, and we will continue. 3. T4 paraplegia, chronic and stable. 4. Bilateral heel decubitus, slowly improving. 5. Chronic pain in the back. Positive for recurrent metastatic disease from esophageal cancer, stable on pain medicine. PLAN: Continue IV meropenem. Continue to monitor for signs of respiratory distress. Continue wound VAC to sacral decubitus, still plan on discharge on 04/27. Job ID: [id number]
--- NOTE | 2018-04-21 13:00 | PRG ---
DATE OF SERVICE: 04/20/2018 SUBJECTIVE: The patient feels better. No cough, shortness of breath or chest pain. Being very careful with his eating, with no choking. He is having no complaints of change in his chronic back pain. OBJECTIVE: VITAL SIGNS: His temperature is 96.8, pulse 99, respirations 20, O2 sats 93% on room air, blood pressure 117/65. LUNGS: Clear. CARDIAC: Showed regular rhythm. No gallops or murmurs. ABDOMEN: Soft and nontender. SKIN AND EXTREMITIES: Still has wound VAC in place, sacral. ASSESSMENT: 1. Resolving aspiration pneumonia. No evidence of sepsis. 2. Stable T4 paraplegia. 3. Stable sacral decubitus stage IV, on IV meropenem to April 27. 4. Persistent pain in back with abnormal CT scan, possibly due to metastasis from esophageal cancer. PLAN: 1. Continue IV meropenem to April 27. 2. Follow chest x-ray and CT scan closely for signs of curation. 3. Continue to stress good oral aspiration hygiene. Job ID: [id number]
[2018-04-22] MEDS: Cyclobenzaprine 10 MG TAB PO PRN ×2 (02:05→09:02)
[2018-04-22] MEDS: Mometasone/Formoterol 60 PUFF AER INH SCH ×2 (05:32→18:33)
[2018-04-22] MEDS: Meropenem 1 GM in Sodium Chloride 0.9% 100 ML IVPB SCH ×3 (08:03→22:58)
[2018-04-22] MEDS: Aspirin 81 mg Enteric Coated Tablet PO SCH (09:01)
[2018-04-22] MEDS: guaiFENesin ER 600 MG TAB PO SCH ×2 (09:02→20:02)
[2018-04-22] MEDS: Famotidine 20 MG TAB PO SCH ×2 (09:02→20:02)
[2018-04-22] MEDS: Thiamine 100 MG TAB PO SCH (09:02)
[2018-04-22] MEDS: Metamucil PACK PO SCH (09:03)
--- NOTE | 2018-04-22 16:22 | PRG ---
DATE OF SERVICE: 04/22/2018 SUBJECTIVE: Mr. Durbin is doing well. Denies any complaints. Just finished his lunch. Tolerating his antibiotics. No family at bedside. Denies any concerns or questions. OBJECTIVE: VITAL SIGNS: He is afebrile. Heart rate 94, respirations 20, oxygen saturation 94% on 2 L, blood pressure is 111/66. CARDIOVASCULAR: S1 and S2 plus. RESPIRATORY: Normal vesicular breath sounds. ABDOMEN: Soft and nontender. Bowel sounds heard in all quadrants. EXTREMITIES: Without cyanosis or clubbing. DIAGNOSTIC DATA: Recent CT scan done on his chest shows improved aeration of the right lung, but residual opacity still remains with worsening opacification of the left lower lobe suggesting aspiration or pneumonitis. IMPRESSION: 1. Aspiration pneumonia, on IV antibiotics. 2. Stage IV sacral decubitus. 3. T4 paraplegia. 4. Bilateral heel decubitus. 5. Chronic back pain. 6. 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 PLAN: 1. Continue current medications including antibiotics. 2. Aspiration precautions. 3. Continue oxygen and titrate to off as tolerated. 4. Wound VAC. 5. DVT and stress ulcer prophylaxis. 6. Decubitus precautions. 7. Routine laboratory values. 8. Monitor respiratory status. Dr. Campos will be back tonight. Job ID: [id number]
[2018-04-23] MEDS: Mometasone/Formoterol 60 PUFF AER INH SCH ×2 (05:22→18:37)
[2018-04-23] MEDS: Meropenem 1 GM in Sodium Chloride 0.9% 100 ML IVPB SCH ×3 (08:28→22:58)
[2018-04-23] MEDS: guaiFENesin ER 600 MG TAB PO SCH ×2 (08:29→19:59)
[2018-04-23] MEDS: Famotidine 20 MG TAB PO SCH ×2 (08:29→19:59)
[2018-04-23] MEDS: Aspirin 81 mg Enteric Coated Tablet PO SCH (08:29)
[2018-04-23] MEDS: Metamucil PACK PO SCH (08:30)
[2018-04-23] MEDS: Thiamine 100 MG TAB PO SCH (08:30)
[2018-04-24] MEDS: Mometasone/Formoterol 60 PUFF AER INH SCH ×2 (05:19→18:10)
[2018-04-24 05:35] LABS: Anisocytosis SLIGHT = 6-15 cells (100X) (0-5/hpf); Band 9 % (5-11); Eosinophils 8 % (0-10); Hemoglobin 8.8 g/dL (14.0-18.0); Hypochromia SLIGHT = 6-15 cells (100X) (0-5/hpf); Lymphocytes 16 % (21-51); MDiff Complete? YES; Mean Corpuscular HGB CONC 31.3 g/dL (32.0-36.0); Mean Corpuscular Hemoglobin 27.8 pg (27.0-31.0); Mean Corpuscular Volume 88.9 fL (78.0-98.0); Mean Platelet Volume 5.2 fL (7.4-10.4); Metamyelocyte 1 % (0-0); Monocytes 12 % (0-10); Myelocyte 1 % (0-0); Neutrophil 53 % (42-75); Platelet Count 533 thou/uL (130-400); Platelet Morphology Comment Appears Increased; RBC Distribution Width 14.9 % (11.5-14.5); Red Blood Cell (RBC) Count 3.17 mill/uL (4.70-6.10); White Blood Cell (WBC) Count 9.8 thou/uL (4.8-10.8)
[2018-04-24] MEDS: Meropenem 1 GM in Sodium Chloride 0.9% 100 ML IVPB SCH ×3 (08:23→23:41)
[2018-04-24] MEDS: Aspirin 81 mg Enteric Coated Tablet PO SCH (08:24)
[2018-04-24] MEDS: Metamucil PACK PO SCH (08:24)
[2018-04-24] MEDS: Famotidine 20 MG TAB PO SCH ×2 (08:24→21:15)
[2018-04-24] MEDS: guaiFENesin ER 600 MG TAB PO SCH ×2 (08:24→21:15)
[2018-04-24] MEDS: Thiamine 100 MG TAB PO SCH (08:25)
[2018-04-25] MEDS: Mometasone/Formoterol 60 PUFF AER INH SCH ×2 (05:11→18:25)
[2018-04-25] MEDS: Meropenem 1 GM in Sodium Chloride 0.9% 100 ML IVPB SCH ×3 (09:13→23:32)
[2018-04-25] MEDS: Aspirin 81 mg Enteric Coated Tablet PO SCH (09:14)
[2018-04-25] MEDS: Metamucil PACK PO SCH (09:14)
[2018-04-25] MEDS: Thiamine 100 MG TAB PO SCH (09:14)
[2018-04-25] MEDS: Famotidine 20 MG TAB PO SCH ×2 (09:14→21:49)
[2018-04-25] MEDS: guaiFENesin ER 600 MG TAB PO SCH ×2 (09:14→21:49)
[2018-04-26] MEDS: Cyclobenzaprine 10 MG TAB PO PRN (05:27)
[2018-04-26] MEDS: Mometasone/Formoterol 60 PUFF AER INH SCH ×2 (05:27→18:26)
--- NOTE | 2018-04-26 08:01 | PRG ---
DATE OF SERVICE: 04/23/2018 SUBJECTIVE: The patient feels well, visiting with daughter. States she is preparing for discharge next week, but understands it may not be able to be discharged until Monday instead of Monday because of wound VAC. He is having no cough or shortness of breath. Tolerating wound VAC well. OBJECTIVE: VITAL SIGNS: Show his blood pressure is 129/75, temperature is 97, pulse 98, respirations 20, O2 saturations 93% on 2 L. LUNGS: Clear. CARDIAC: Showed regular rhythm. ABDOMEN: Soft and nontender. SKIN AND EXTREMITIES: Showed wound VAC in place functioning well over the sacrum, and bilateral heel decubitus healing well with epithelialization. NEUROLOGIC: Shows stable T4 paraplegia. ASSESSMENT: 1. Stable T4 paraplegia. 2. History of metastatic esophageal cancer with stable back pain and abnormal CT of the C-spine. 3. Resolving stage IV sacral decubitus with 4 weeks of antibiotics to finish on April 29, and wound VAC to be discussed as an outpatient and ordered by PT. 4. Bilateral heel decubitus, healing well. 5. Resolving aspiration pneumonia. We will check on it, and we will check CBC in the a.m. Job ID: [id number]
[2018-04-26] MEDS: Meropenem 1 GM in Sodium Chloride 0.9% 100 ML IVPB SCH ×3 (08:18→23:05)
--- NOTE | 2018-04-26 08:53 | PRG ---
DATE OF SERVICE: 04/26/2018 SUBJECTIVE: The patient is sitting up in bed, eating breakfast. No complaints of coughing and is observing aspiration precautions. He has had no cough, pain, fever, or chills. Slept well through the night, feeling stronger. OBJECTIVE: VITAL SIGNS: Shows temperature is 97.8, pulse 99, respirations 20, O2 saturations 91% on 2 L, blood pressure 110/69. LUNGS: Clear. CARDIAC: Showed regular rhythm. ABDOMEN: Soft and nontender. Wound VAC is in place on sacrum and functioning well. EXTREMITIES: Bilateral heels are bandaged. ASSESSMENT: 1. Resolving aspiration pneumonia with continued knee distress. Patient on aspiration precautions. 2. Resolving stage IV decubitus on wound VAC. Antibiotics finished April 29 and outpatient wound VAC ordered for Monday, April 29. 3. Stable metastatic esophageal cancer with stable back pain. 4. Stable T4 paraplegia. PLAN: Continue aspiration precautions. Continue IV meropenem until April 29. Continue wound VAC. Job ID: [id number]
[2018-04-26] MEDS: Aspirin 81 mg Enteric Coated Tablet PO SCH (09:17)
[2018-04-26] MEDS: guaiFENesin ER 600 MG TAB PO SCH ×2 (09:17→20:51)
[2018-04-26] MEDS: Famotidine 20 MG TAB PO SCH ×2 (09:17→20:50)
[2018-04-26] MEDS: Thiamine 100 MG TAB PO SCH (09:17)
[2018-04-26] MEDS: Metamucil PACK PO SCH (09:18)
--- NOTE | 2018-04-26 09:21 | PRG ---
DATE OF SERVICE: 04/24/2018 SUBJECTIVE: The patient feels well. No complaints. Awaiting discharge early next week. OBJECTIVE: VITAL SIGNS: Temperature 97.4, pulse 91, respirations 20, O2 sats 94% on 2 L and blood pressure 148/84. LUNGS: Clear. CARDIAC: Shows regular rhythm. ABDOMEN: Soft, nontender. SKIN/EXTREMITIES: Show wound VAC in place. The sacrum is functioning well and bilateral heel decubitus covered and bandaged. LABORATORY DATA: Shows white count normalized at 9800, hematocrit 28, hemoglobin 8.8. ASSESSMENT: 1. Resolved aspiration pneumonia and stressed the patient need to monitor aspiration precautions. 2. Resolving sacral decubitus, on antibiotics until April 29, now instead of April 27. 3. Stable T4 paraplegia. 4. Stable metastatic esophageal cancer. 5. Bilateral heel decubitus, healing well. PLAN: Continue meropenem until April 29. Continue to stress aspiration precautions. Continue wound VAC and discuss outpatient wound VAC with Physical Therapy. Job ID: [id number]
--- NOTE | 2018-04-26 09:22 | PRG ---
DATE OF SERVICE: 04/25/2018 SUBJECTIVE: The patient feels well, lying in the bed, visited with daughter who was arranged to pick him up on Monday afternoon. Discussed outpatient wound VAC and filled out papers with PT and should have wound VAC available at that time. He is having no cough and is eating properly with aspiration precautions. OBJECTIVE: VITAL SIGNS: Shows temperature is 96.9, pulse 100, respirations 20, O2 sats 96% on 2 L, and blood pressure down to 99/58. LUNGS: Clear. CARDIAC: Showed regular rhythm. ABDOMEN: Soft and nontender. SKIN/EXTREMITIES: Wound VAC functioning well with minimal slough and healing epithelial tissues. Heel decubitus also healing well with just bandages. ASSESSMENT: 1. Resolving stage IV decubitus, healing well with no evidence of infection with antibiotic to be finished on April 29. 2. Healing bilateral heel decubitus with offloading and bandage. 3. Stable T4 paraplegia. 4. Stable metastatic esophageal cancer. 5. Resolved aspiration pneumonia. The patient observing aspiration precautions. Job ID: [id number]
[2018-04-27] MEDS: Mometasone/Formoterol 60 PUFF AER INH SCH ×2 (05:18→18:06)
[2018-04-27] MEDS: Cyclobenzaprine 10 MG TAB PO PRN (05:18)
[2018-04-27] MEDS: Meropenem 1 GM in Sodium Chloride 0.9% 100 ML IVPB SCH ×3 (08:55→23:31)
[2018-04-27] MEDS: guaiFENesin ER 600 MG TAB PO SCH ×2 (08:57→21:39)
[2018-04-27] MEDS: Famotidine 20 MG TAB PO SCH ×2 (08:57→21:39)
[2018-04-27] MEDS: Thiamine 100 MG TAB PO SCH (08:58)
[2018-04-27] MEDS: Aspirin 81 mg Enteric Coated Tablet PO SCH (08:59)
[2018-04-27] MEDS: Metamucil PACK PO SCH (09:00)
[2018-04-28] MEDS: Mometasone/Formoterol 60 PUFF AER INH SCH ×2 (05:44→18:42)
[2018-04-28] MEDS: Cyclobenzaprine 10 MG TAB PO PRN ×2 (06:07→20:35)
[2018-04-28] MEDS: Meropenem 1 GM in Sodium Chloride 0.9% 100 ML IVPB SCH ×2 (08:44→16:17)
[2018-04-28] MEDS: Metamucil PACK PO SCH (08:45)
[2018-04-28] MEDS: guaiFENesin ER 600 MG TAB PO SCH ×2 (08:45→20:34)
[2018-04-28] MEDS: Aspirin 81 mg Enteric Coated Tablet PO SCH (08:45)
[2018-04-28] MEDS: Famotidine 20 MG TAB PO SCH ×2 (08:45→20:35)
[2018-04-28] MEDS: Thiamine 100 MG TAB PO SCH (08:46)
--- NOTE | 2018-04-28 19:11 | PRG ---
DATE OF SERVICE: 04/28/2018 SUBJECTIVE: The patient feels well. No complaints. Visiting with family, preparing for discharge in the next 2 days. OBJECTIVE: VITAL SIGNS: Show temperature 97, pulse 100, respirations 20, O2 sats 93% on 2 L, and blood pressure 112/63. LUNGS: Clear. CARDIAC: Showed regular rhythm. ABDOMEN: Soft and nontender. ASSESSMENT: 1. Resolving stage IV decubitus, wound VAC in place. Awaiting outpatient wound VAC. 2. Stable T4 paraplegia. 3. Recurrent aspiration pneumonia, resolved. 4. Current back pain secondary to metastatic esophageal cancer, stable. PLAN: 1. Continue IV meropenem until April 30. 2. Await outpatient wound VAC. 3. Plan on discharge in 2 days to follow up with home health care. Job ID: [id number]
[2018-04-29] MEDS: Meropenem 1 GM in Sodium Chloride 0.9% 100 ML IVPB SCH ×3 (00:09→15:29)
[2018-04-29] MEDS: Mometasone/Formoterol 60 PUFF AER INH SCH ×2 (05:49→17:55)
[2018-04-29] MEDS: Famotidine 20 MG TAB PO SCH ×2 (08:28→20:16)
[2018-04-29] MEDS: Metamucil PACK PO SCH (08:28)
[2018-04-29] MEDS: guaiFENesin ER 600 MG TAB PO SCH ×2 (08:28→20:16)
[2018-04-29] MEDS: Aspirin 81 mg Enteric Coated Tablet PO SCH (08:28)
[2018-04-29] MEDS: Thiamine 100 MG TAB PO SCH (08:29)
--- NOTE | 2018-04-29 09:21 | PRG ---
DATE OF SERVICE: 04/29/2018 SUBJECTIVE: The patient feels well, lying in the bed, resting, no complaints, awaiting discharge tomorrow. OBJECTIVE: VITAL SIGNS: Pulse 101, respirations 20, O2 sats 94% on 2 L, and blood pressure 97/52. SKIN: Wound VAC is in place in the sacrum and is functioning well. He has bilateral heel decubitus bandage and healing well. LUNGS: Clear. CARDIAC: Regular rhythm. ASSESSMENT: 1. Resolving stage IV decubitus with antibiotic to finish tomorrow, will be discharged home on home wound VAC. 2. Stable T4 paraplegia. 3. Stable esophageal cancer with possible metastasis to the spine, stable pain. 4. Resolving aspiration pneumonia with the patient observing aspiration precaution, but still eating. PLAN: 1. Continue meropenem until tomorrow. 2. Possibly discharge tomorrow with wound VAC. 3. The patient is to follow up with Home Health Care tomorrow. Job ID: [id number]
[2018-04-30] MEDS: Mometasone/Formoterol 60 PUFF AER INH SCH ×2 (05:39→18:01)
[2018-04-30] MEDS: guaiFENesin ER 600 MG TAB PO SCH ×2 (08:51→21:02)
[2018-04-30] MEDS: Thiamine 100 MG TAB PO SCH (08:51)
[2018-04-30] MEDS: Aspirin 81 mg Enteric Coated Tablet PO SCH (08:51)
[2018-04-30] MEDS: Metamucil PACK PO SCH (08:51)
[2018-04-30] MEDS: Famotidine 20 MG TAB PO SCH ×2 (08:51→21:02)
--- NOTE | 2018-04-30 11:24 | PRG ---
DATE OF SERVICE: 04/27/2018 SUBJECTIVE: The patient feels well. No complaints. Resting. Awaiting results of wound VAC order and whether they will be here in 2 days. Says no cough or shortness of breath. OBJECTIVE: VITAL SIGNS: Show temperature is 97.8, pulse 105, respirations 20, O2 sats 95% on 2 L, blood pressure 90/56. LUNGS: Clear. CARDIAC: Shows regular rhythm. ABDOMEN: Soft, nontender. ASSESSMENT: 1. Resolving stage IV decubitus, IV meropenem until April 30. 2. Resolved aspiration pneumonia. 3. Stable T4 paraplegia. 4. Stable metastatic esophageal cancer. PLAN: Continue antibiotics until April 30. Await outpatient wound VAC. Continue aspiration precautions. Job ID: [id number]
--- NOTE | 2018-04-30 17:50 | PRG ---
DATE OF SERVICE: 04/30/2018 SUBJECTIVE: The patient feels well. Waiting for wound VAC to arrive, so he can be discharged to home and waiting for transportation home. He is having no pain, cough, or shortness of breath. OBJECTIVE: VITAL SIGNS: Show temperature is 98.1, pulse 100, respirations 18, O2 sat is 96% on 2 L, and blood pressure 122/73. LUNGS: Clear. CARDIAC: Regular rhythm. ABDOMEN: Soft and nontender. ASSESSMENT: 1. Resolved aspiration pneumonia. 2. Stable stage IV decubitus with 4 weeks of antibiotics finished. 3. Stable heel decubitus, bandaged. 4. Stable T4 paraplegia. 5. Stable metastatic disease from esophageal cancer with mild chronic back pain. PLAN: 1. Await wound VAC to be discharged home. 2. Continue aspiration precautions. 3. Continue bandage of the heels and wound VAC of the sacrum. Job ID: [id number]
[2018-05-01] MEDS: Mometasone/Formoterol 60 PUFF AER INH SCH ×2 (05:41→18:12)
[2018-05-01] MEDS: guaiFENesin ER 600 MG TAB PO SCH ×2 (09:06→20:39)
[2018-05-01] MEDS: Metamucil PACK PO SCH (09:06)
[2018-05-01] MEDS: Aspirin 81 mg Enteric Coated Tablet PO SCH (09:06)
[2018-05-01] MEDS: Thiamine 100 MG TAB PO SCH (09:06)
[2018-05-01] MEDS: Famotidine 20 MG TAB PO SCH ×2 (09:06→20:39)
[2018-05-02] MEDS: Mometasone/Formoterol 60 PUFF AER INH SCH ×2 (05:42→18:02)
[2018-05-02 07:37] VITALS: BP 123/70; TEMP 97.9
[2018-05-02] MEDS: Metamucil PACK PO SCH (08:54)
[2018-05-02] MEDS: Aspirin 81 mg Enteric Coated Tablet PO SCH (08:54)
[2018-05-02] MEDS: guaiFENesin ER 600 MG TAB PO SCH (08:54)
[2018-05-02] MEDS: Famotidine 20 MG TAB PO SCH (08:54)
[2018-05-02] MEDS: Thiamine 100 MG TAB PO SCH (08:54)
[2018-05-02] MEDS: Acetaminophen 500 MG TAB PO PRN (11:19)
[2018-05-02] MEDS: Cyclobenzaprine 10 MG TAB PO PRN (11:19)
--- NOTE | 2018-05-02 20:20 | DIS ---
DATE OF ADMISSION: 03/16/2018 DATE OF DISCHARGE: 05/02/2018 FINAL DIAGNOSES: 1. Stage IV decubitus of the sacrum requiring wound VAC and treatment with IV meropenem for gram-negative and anaerobic infection with full 6-week course finished. 2. Stable T4 paraplegia secondary to metastatic esophageal cancer with complications of recurrent weakness and orthostatic hypotension, unable to care for himself. 3. Recurrent aspiration pneumonia occurring twice in the hospitalization, resolved with incentive spirometry, handheld nebulizers, and continued antibiotics and with specific instructions to decrease aspiration risk as patient has been deemed to be at risk for recurrent aspiration but has refused PEG tube. 4. Metastatic esophageal cancer with recurrent pain in the back, controlled with occasional pain medicine. HOSPITAL COURSE: Patient is an unfortunate 72-year-old white male who has had a cancer of the esophagus with metastasis to the spine requiring surgical removal of the thoracic metastasis with subsequent paraplegia and sensory motor level at T3-T4. He has been essentially bedridden since that time and developed extensive sacral decubitus and bilateral heel decubitus, required debridement by Dr. Don and was started on IV antibiotics by Dr. Mayfield, found to have mainly Gram negatives and was felt to require meropenem for 6 weeks. Urine culture did also show Pseudomonas, which has been treated by this. He also had complications of recurrent mucus plugging and right lung collapse requiring treatment with EzPAP as he refused bronchoscopy. He recovered from that, but then had another episode of aspiration pneumonia with no significant dyspnea, improved with aspiration precautions and no further episodes of aspiration while sitting up and chewing well and treated only as mentioned with handheld nebulized and the meropenem. He as mentioned above, has refused PEG tube and understands he is at risk. He has required oxygen in the past, but apparently sent this home when he was admitted to the hospital and therefore needs to be restarted back on his oxygen, which was 2 L at night previously, but has required 2 L at all times during this hospitalization with inability to wean, most likely due to his diaphragmatic dysfunction and T4 paraplegia as his recent chest x-ray is cleared as is his lung perez. He also has a history of recurrent UTIs with no recurrence on the Carvalho catheter with refusal to remove because of inability to maintain a dry sacrum and pelvis. He also has a history of hypertension, which has been well controlled on medications which he has not required any medication and has not been present here. As mentioned above, he finished his six weeks of antibiotics, has obtained an outpatient wound VAC will be continued and will be followed by [facility] and Dr. Morillo. He also will be continued on 2 L of O2 at all times as he is unable to be weaned here. Also, he will be continued on wound dressing of his heels. He has a hospital bed at home and his daughter is willing to care for him and is educated in transfers. His discharge laboratory showed white count 9800, hematocrit 28, and hemoglobin 8.8. Sodium was 137, potassium 4.1, chloride 105, bicarb 27, BUN 20, creatinine 0.6, and albumin is 2.6. Chest CT showed atelectasis and aspiration, but improving with no symptoms of dyspnea or chest pain. Patient's prognosis is poor. He is a full code, understands that he will follow up with his primary care, Dr. Bush and wound care physician, Dr. Morillo in [facility] under my supervision until seen by Dr. Morillo. Job ID: [id number]
--- NOTE | 2018-05-03 07:26 | PRG ---
DATE OF SERVICE: 05/01/2018 SUBJECTIVE: The patient feels well. Wound VAC is arriving this afternoon, preparing for discharge tomorrow, having no pain or cough. Still requiring oxygen supplementation because of poor inspiration from T4 paraplegia. OBJECTIVE: VITAL SIGNS: Show a temperature of 97.5, pulse 94, respirations 20, O2 sats 95% on 2, blood pressure 144/82, blood pressure 130/74. LUNGS: Clear. CARDIAC: Showed regular rhythm. ABDOMEN: Soft and nontender. Wound VAC is in place. EXTREMITIES: Bilateral heel decubitus bandage. ASSESSMENT: 1. Resolving stage IV decubitus, off antibiotics, on wound VAC, to be followed by Dr. Morillo. 2. Bilateral heel decubitus, healing, well managed. 3. T4 paraplegia, stable, with inability to do therapy. 4. Recurrent hypoxemia and aspiration pneumonia secondary to poor diaphragmatic function and recurrent aspiration risk. 5. Metastatic esophageal cancer with current back pain. PLAN: 1. Stable to be discharged home tomorrow. 2. Continue 2 L O2 and discharge home on this. 3. Continue wound VAC as outpatient, being followed by [facility]. 4. Follow up with Dr. Morillo, next available. 5. Continue aspiration precautions. Job ID: [id number]
== END 2018-05-02 18:59 | disposition home health service (06) | DRG 592 ==
LOC: NAV ACUTE 18:36
PROVIDERS: ADMIT Internal Medicine; ATTEND Internal Medicine
DX: L89.154 Pressure ulcer of sacral region, stage 4 (principal); J69.0 Pneumonitis due to inhalation of food and vomit; C79.51 Secondary malignant neoplasm of bone; G82.20 Paraplegia, unspecified; C15.9 Malignant neoplasm of esophagus, unspecified; J98.11 Atelectasis; T17.890A Other foreign object in other parts of respiratory tract causing asphyxiation, initial encounter; L89.624 Pressure ulcer of left heel, stage 4; L89.614 Pressure ulcer of right heel, stage 4; N31.9 Neuromuscular dysfunction of bladder, unspecified; J44.9 Chronic obstructive pulmonary disease, unspecified; I10 Essential (primary) hypertension; G89.3 Neoplasm related pain (acute) (chronic); J98.6 Disorders of diaphragm; I95.1 Orthostatic hypotension; Z74.09 Other reduced mobility; Z74.01 Bed confinement status; Z87.440 Personal history of urinary (tract) infections; Z87.891 Personal history of nicotine dependence; Z79.82 Long term (current) use of aspirin; Z79.899 Other long term (current) drug therapy; X58.XXXA Exposure to other specified factors, initial encounter
CPT/HCPCS: 36415; 71045; 71250; 72128; 80048; 80053; 81001; 85025; 87086; 94640; 94664; 97602; J2185; J2543; J7050; J7620; Q0162

== ENCOUNTER 2018-09-18 12:02 | Emergency (ER) | payer MEDICARE ==
[2018-09-18 12:50] LABS: ALT (SGPT) 8 U/L (8-55); AST (SGOT) 14 U/L (5-34); Albumin 2.4 g/dL (3.4-4.8); Alkaline Phosphatase 92 U/L (40-150); Anion Gap 13 mmol/L (10-20); BUN (Urea Nitrogen) 30 mg/dL (8.4-25.7); Bilirubin, Total 0.5 mg/dL (0.2-1.2); Calc. Creatinine Clearance 0 mL/min (70-130); Calcium 7.9 mg/dL (7.8-10.44); Carbon Dioxide 24 mmol/L (23-31); Chloride 99 mmol/L (98-107); Estimated GFR-MDRD 46; Globulin 4.8 g/dL (2.4-3.5); Glucose 112 mg/dL (83-110); Protein, Total 7.2 g/dL (5.8-8.1); Sodium 133 mmol/L (136-145)
[2018-09-18 12:52] LABS: Potassium 2.6 mmol/L (3.5-5.1)
[2018-09-18 12:58] LABS: Bilirubin Negative (Negative); Blood, Urine Moderate (Negative); Glucose, Urine (Dipstick) Negative (Negative); Leukocyte Large (Negative); Nitrite Positive (Negative); Protein, Urine (Dipstick) 100 mg/dL (Neg-Trace); Urobilinogen 0.2 mg/dL (Less than 2)
[2018-09-18 13:00] LABS: Clarity Hazy (Clear)
[2018-09-18 13:04] LABS: #Basophils 0.2 thou/uL (0.0-0.2); #Eosinphils 0.8 thou/uL (0.0-0.7); #Neutrophils 9.7 thou/uL (1.40-6.50); %Basophils 1.9 % (0.0-1.0); %Eosinophils 6.2 % (0.0-10.0); %Lymphocytes 7.5 % (21.0-51.0); %Monocytes 8.2 % (0.0-10.0); %Neutrophils 76.3 % (42.0-75.0); Differential Comment SCANNED; Mean Corpuscular HGB CONC 30.6 g/dL (32.0-36.0); Mean Corpuscular Hemoglobin 25.9 pg (27.0-31.0); Mean Corpuscular Volume 84.8 fL (78.0-98.0); Platelet Count 602 thou/uL (130-400); Platelet Morphology Comment Appears Increased; RBC Distribution Width 16.2 % (11.5-14.5); Red Blood Cell (RBC) Count 3.45 mill/uL (4.70-6.10); White Blood Cell (WBC) Count 12.7 thou/uL (4.8-10.8)
[2018-09-18 13:05] LABS: MDiff Complete? YES
[2018-09-18] MEDS ORDERED: Sodium Chloride 0.9% 250 ML 250 ML ONE (13:05)
[2018-09-18] MEDS ORDERED: Piperacillin/Tazobactam 4.5 GM VIAL ONE (13:05)
[2018-09-18] MEDS ORDERED: Sodium Chloride 0.9% 1,000 ML ONE (13:05)
[2018-09-18] MEDS ORDERED: Sodium Chloride 0.9% 100 ML ONE (13:06)
[2018-09-18 13:08] LABS: Bacteria/HPF 3+ HPF (None Seen); Squamous Epithelial 0-3 HPF (0-3); WBC/HPF Greater Than 50 HPF (0-3)
--- NOTE | 2018-09-18 13:13 | RAD ---
XR Chest 1 View Portable History: Sepsis Comparison: Radiograph April 19, 2018 Findings: Port catheter tip is in the SVC. The aorta is ectatic, similar to the comparison examinatio n. Small right pleural effusion. Mild bibasilar atelectasis. Subtle right basilar airspace opacity. Impression: 1. Small right pleural effusion with subtle right basilar opacity can be seen with infection. 2. Ectasia of the aorta, similar.
[2018-09-18] MEDS ORDERED: Potassium Chloride 20 MEQ TAB ONE (13:21)
[2018-09-18] MEDS ORDERED: Potassium Chloride 20 MEQ/100 ML PREMIX BAG ONE (13:21)
[2018-09-18] MEDS ORDERED: NS 0.9% w/ 20 MEQ KCL 1,000 ML ONE (13:27)
== END 2018-09-18 14:45 | disposition short-term general hospital (02) ==
LOC: NAV ERS 12:02
DX: A41.9 Sepsis, unspecified organism (principal); N30.00 Acute cystitis without hematuria; E87.6 Hypokalemia; N17.9 Acute kidney failure, unspecified; I10 Essential (primary) hypertension; J44.9 Chronic obstructive pulmonary disease, unspecified; Z87.891 Personal history of nicotine dependence; Z79.899 Other long term (current) drug therapy; Z79.82 Long term (current) use of aspirin
CPT/HCPCS: 71045; 80053; 81003; 81015; 83605; 85025; 87040; 87070; 87077; 87086; 87186; 87205; 93005; 96365; 96367; J2543; J3370; J3480; J3490; J7050

== ENCOUNTER 2018-09-27 18:41 | Inpatient (IN) | payer MEDICARE ==
[2018-09-27 21:06] LABS: Bilirubin Negative (Negative); Blood, Urine Trace (Negative); Glucose, Urine (Dipstick) Negative (Negative); Leukocyte Trace (Negative); Nitrite Negative (Negative); Protein, Urine (Dipstick) Trace mg/dL (Neg-Trace); Urobilinogen 0.2 mg/dL (Less than 2)
[2018-09-27 21:23] LABS: Clarity SL HAZY (Clear); RBC/HPF 0-3 HPF (0-3); Urine Culture Reflex No No
[2018-09-27 21:24] LABS: Squamous Epithelial 0-3 HPF (0-3)
[2018-09-27] MEDS: guaiFENesin ER 600 MG TAB PO SCH (21:24)
[2018-09-27 21:25] LABS: Bacteria/HPF 1+ HPF (None Seen)
[2018-09-28] MEDS: Mometasone/Formoterol 60 PUFF AER INH SCH ×2 (05:13→18:40)
[2018-09-28] MEDS: Ciprofloxacin 500 MG TAB PO SCH ×2 (05:13→19:48)
[2018-09-28 05:31] LABS: Band 8 % (5-11); Eosinophils 10 % (0-10); Hemoglobin 9.1 g/dL (14.0-18.0); Lymphocytes 14 % (21-51); MDiff Complete? YES; Mean Corpuscular HGB CONC 30.3 g/dL (32.0-36.0); Mean Corpuscular Hemoglobin 25.9 pg (27.0-31.0); Mean Corpuscular Volume 85.3 fL (78.0-98.0); Mean Platelet Volume 5.2 fL (7.4-10.4); Monocytes 6 % (0-10); Neutrophil 62 % (42-75); Platelet Count 476 thou/uL (130-400); Platelet Morphology Comment Appears Increased; RBC Distribution Width 16.5 % (11.5-14.5); RBC Morphology Normal; Red Blood Cell (RBC) Count 3.53 mill/uL (4.70-6.10); White Blood Cell (WBC) Count 9.1 thou/uL (4.8-10.8)
[2018-09-28 05:41] LABS: ALT (SGPT) 12 U/L (8-55); AST (SGOT) 24 U/L (5-34); Albumin 2.4 g/dL (3.4-4.8); Alkaline Phosphatase 82 U/L (40-150); Anion Gap 12 mmol/L (10-20); BUN (Urea Nitrogen) 9 mg/dL (8.4-25.7); Bilirubin, Total 0.3 mg/dL (0.2-1.2); Calc. Creatinine Clearance 77 mL/min (70-130); Calcium 8.5 mg/dL (7.8-10.44); Carbon Dioxide 22 mmol/L (23-31); Chloride 104 mmol/L (98-107); Estimated GFR-MDRD 77; Globulin 4.8 g/dL (2.4-3.5); Glucose 99 mg/dL (83-110); Potassium 4.4 mmol/L (3.5-5.1); Protein, Total 7.2 g/dL (5.8-8.1); Sodium 134 mmol/L (136-145)
[2018-09-28] MEDS: Aspirin 81 mg Enteric Coated Tablet PO SCH (09:37)
[2018-09-28] MEDS: guaiFENesin ER 600 MG TAB PO SCH ×2 (09:37→19:48)
[2018-09-28] MEDS: Cyclobenzaprine 10 MG TAB PO SCH (09:38)
[2018-09-28] MEDS: Potassium Chloride 20 MEQ TAB PO SCH ×2 (09:38→17:09)
[2018-09-28 10:56] VITALS: BMI 23.1
--- NOTE | 2018-09-29 01:44 | HP ---
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 He is found to have infection secondary to probable osteomyelitis of the right tibia with E coli sepsis secondary to urinary tract from a chronic indwelling Carvalho. He responded to treatment of his sepsis with fluid resuscitation and IV antibiotics. He was initially found to be hypokalemic which responded to supplementation. His E coli urinary tract infection was found to be susceptible to Cipro and he was started on this. He was placed on Zosyn, but then Infectious Disease documented probable osteomyelitis and recommended debridement, but the patient refused. Therefore, the patient felt that he wanted non-aggressive treatment and was therefore switched to oral Cipro to be continued for total of 14 days. The patient refused palliative care and remained full code, but he continued to feel well and therefore he wished to be transferred to the [facility] unit for more intensive care until his oral antibiotics were finished and discuss surgery in the future. This is despite being informed that he could deteriorate, worsen, or become septic. If it did, he would be transferred back for emergent care with a much higher risk of deterioration. The patient's past history as mentioned above. It is positive for the esophageal cancer with metastasis to the spine which apparently though has not deteriorated as he is still eating, although he has been found to be unsafe by Speech Therapy multiple times and is eating, comfort care with no aspiration. He also has a history of hypertension, which has been well controlled. COPD, it has been stable as he has a long history of smoking greater than 100-pack years, but none in the last year. History of heavy drinking, quit several months ago. History of a chronic indwelling Carvalho catheter secondary to his paraplegia. He has a history of pulmonary embolism in the past. ALLERGIES: HE HAS NO KNOWN ALLERGIES. REVIEW OF SYSTEMS: Essentially, HEENT: Denies any headaches, dizziness, change in vision or hearing, hoarseness, or dysphagia, although he has failed swallowing studies. PULMONARY: He denies cough, sputum production, pneumonia, asthma, although he has had a documented pneumonia in the past to [facility]. CARDIOVASCULAR: Denies chest pain, orthopnea, paroxysmal nocturnal dyspnea, or edema. GASTROINTESTINAL: Denies nausea, vomiting, diarrhea, constipation, or abdominal pain. GENITOURINARY: He has a chronic indwelling Carvalho. Has complete neurogenic bladder. Does have bowel movements. MUSCULOSKELETAL: He has had a history of a large stage IV sacral decubitus, which is completely healed, but now is broken down his stage II in small area. He has 2 ulcers on his right leg measured about 15 cm on the mid level of right leg with bone exposed. NEUROLOGIC: Complete paraplegia with senseless below the chest. PHYSICAL EXAMINATION: VITAL SIGNS: Shows him to have blood pressure of 94/53, temperature is 97.9, pulse 101, respirations 18, O2 sats 94% on room air, blood pressure 103/67. HEENT: Pupils are equal, round, and reactive to light and accommodation. Sclerae anicteric. Conjunctivae pale. Oral mucous membranes are well hydrated. NECK: Supple. There are no nodes or masses. JVP is not elevated. Carotids 2+ and equal without bruits. LUNGS: Clear. CARDIAC: Showed regular rhythm. ABDOMEN: Soft and nontender. SKIN AND EXTREMITIES: No edema, clubbing, or cyanosis. There is a large lateral abrasion and wound on the right calf with exposed bone. There is a healed stage IV sacral decubitus with early small stage II area. LABORATORY DATA: Previous day, white count 10,400, hematocrit 29, hemoglobin 9.5. Sodium 135, potassium 4.7, chloride 104, bicarb 23, BUN 10, creatinine 0.97, albumin 2.3. Urinalysis within normal limits, shows 4 to 6 white cells and no other abnormalities. ASSESSMENT: 1. Resolving Escherichia coli urinary tract infection and bacteremia, on Cipro for 14 days. 2. Probable osteomyelitis of right fibula, in need of wound care. 3. Paraplegia secondary to metastatic cancer to the spinal cord after radiation. 4. History of chronic obstructive pulmonary disease, stable. 5. History of aspirations, precautions, with no evidence at this time. PLAN: 1. Continue oral Cipro. 2. Continue wound care. 3. The patient is a full code, and if deteriorates, he wishes to be sent back for possible surgical evaluation, but refuses at this time. 4. Continue potassium supplementation. 5. Await results of repeat urine culture. Job ID: [id number]
[2018-09-29] MEDS: Collagenase 250 UNITS/GM Ointment 30 GM TUBE TOP SCH (02:32)
[2018-09-29] MEDS: Mometasone/Formoterol 60 PUFF AER INH SCH ×2 (05:35→18:40)
[2018-09-29] MEDS: Ciprofloxacin 500 MG TAB PO SCH ×2 (05:35→21:06)
[2018-09-29] MEDS: Potassium Chloride 20 MEQ TAB PO SCH ×2 (08:55→18:09)
[2018-09-29] MEDS: guaiFENesin ER 600 MG TAB PO SCH ×2 (09:01→21:06)
[2018-09-29] MEDS: Cyclobenzaprine 10 MG TAB PO SCH (09:02)
[2018-09-29] MEDS: Aspirin 81 mg Enteric Coated Tablet PO SCH (09:02)
[2018-09-30] MEDS: Ciprofloxacin 500 MG TAB PO SCH ×2 (06:00→20:28)
[2018-09-30] MEDS: Mometasone/Formoterol 60 PUFF AER INH SCH ×2 (06:31→18:08)
--- NOTE | 2018-09-30 07:43 | PRG ---
DATE OF SERVICE: 09/28/2018 SUBJECTIVE: The patient feels well lying in the bed, eating, no complaints. Having no pain in his legs as he is insensate below the chest. He has had no fever, chills, shortness of breath. OBJECTIVE: VITAL SIGNS: Temperature is 98.2 pulse 98, respirations 18, O2 sats 98% on room air, blood pressure 104/66. HEENT: Pupils are equal, round and reactive to light and accommodation. LUNGS: Show decreased breath sounds. No rales or rhonchi. CARDIAC: Showed regular rhythm. ABDOMEN: Soft, nontender. EXTREMITIES: Right leg shows a bandage over the right lateral calf. LABORATORY DATA: Shows white count 9100, hematocrit 30, hemoglobin 9. Sodium 134, potassium 4.4, chloride 104, bicarb 22, BUN 9, creatinine 0.95, albumin 2.4, AST 24, ALT 12. 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 New onset of stage IV decubitus of the right tibia with exposed bone and probable osteomyelitis associated with Escherichia coli sepsis from a chronic indwelling Carvalho who is now on oral Cipro as he refused debridement and treatment of osteomyelitis and he is only on the Cipro for a total of 14 days. He has refused palliative care and is a full code and he has also been deemed unsafe for any oral ingestion, but has been on comfort feeding since last hospitalization. He is having no shortness of breath or chest pain, but does have occasional cough. OBJECTIVE: VITAL SIGNS: His blood pressure . ASSESSMENT: A 73-year-old white male with a history of paraplegia, status post . PLAN: 1. Continue Cipro orally 2 weeks. 2. Continue wound care. 3. Continue to monitor for recurrent aspiration, have patient sign comfort measures waiver. 4. Advised nurses the patient is a full code and if deteriorates, he is to be transferred to [place]. Job ID: [id number]
--- NOTE | 2018-09-30 08:01 | PRG ---
DATE OF SERVICE: 09/29/2018 SUBJECTIVE: The patient is sitting up in bed, eating. He states that he is eating well and wants to continue with soft food, but does not want pureed diet. However, he does appear to have some difficulty with cough, clearing his throat while talking with me. OBJECTIVE: VITAL SIGNS: Shows temperature is 98, pulse 97, respirations 16, O2 saturations 94% on room air, and blood pressure 118/56. LUNGS: Clear. CARDIAC: Shows regular rhythm. ABDOMEN: Soft and nontender. Right leg is bandaged. ASSESSMENT: 1. Osteomyelitis of right fibula, status post open wound stage 4 decubitus on oral Cipro and wound care as the patient has refused IV antibiotics and debridement and at this time amputation. 2. Paraplegia, status post esophageal cancer with no sense below the chest. 3. Multiple evaluations for aspiration risks. The patient has been found to be unsafe, but has signed waiver in the past and we will present the patient again as he is requesting to eat regular food. 4. Escherichia coli urinary tract infection, resolving on Cipro. PLAN: 1. Continue oral Cipro. 2. Continue wound care. 3. Have the patient signed waiver of risk for aspiration, he continues to wish to eat. 4. Continue full code status. 5. Obtain results of repeat urine culture. Job ID: [id number]
[2018-09-30] MEDS: guaiFENesin ER 600 MG TAB PO SCH ×2 (08:29→20:28)
[2018-09-30] MEDS: Potassium Chloride 20 MEQ TAB PO SCH ×2 (08:29→17:28)
[2018-09-30] MEDS: Cyclobenzaprine 10 MG TAB PO SCH (08:29)
[2018-09-30] MEDS: Aspirin 81 mg Enteric Coated Tablet PO SCH (08:29)
[2018-09-30] MEDS: Collagenase 250 UNITS/GM Ointment 30 GM TUBE TOP SCH (08:30)
--- NOTE | 2018-09-30 21:35 | PRG ---
DATE OF SERVICE: SUBJECTIVE: The patient feels well, lying in bed. No further cough, shortness of breath, or nausea. OBJECTIVE: VITAL SIGNS: Temperature 97.1, pulse 91, respirations 20, O2 sats 95% on room air, blood pressure 124/67. GENERAL: Speech therapy has documented the patient is unsafe for any oral consistencies, but the patient has signed waiver as in the past to eat mechanical soft diet. EXTREMITIES: Right leg is bandaged and will be changed by Wound Care tomorrow. ASSESSMENT: 1. T4 paraplegia secondary to metastatic esophageal cancer to thoracic spine. 2. Osteomyelitis, right fibula with stage IV decubitus, on oral Cipro and wound care as patient has refused IV antibiotics and debridement and amputation, but at this time may reconsider in the future. 3. The patient is not safe for any oral ingestion documented by Speech Therapy and he has signed waiver today. 4. E coli urinary tract infection, resolving, on Cipro which is being given for the osteomyelitis. PLAN: 1. Continue oral Cipro. 2. Continue wound care. 3. Continue to monitor for aspiration as patient has signed waiver for comfort care. 4. Continue full code status. 5. Repeat culture showing persistent gram-negative rods but less than 5000 colony. Job ID: [id number]
[2018-10-01] MEDS: Ciprofloxacin 500 MG TAB PO SCH ×2 (05:44→21:01)
[2018-10-01] MEDS: Mometasone/Formoterol 60 PUFF AER INH SCH ×2 (05:47→18:16)
[2018-10-01] MEDS: guaiFENesin ER 600 MG TAB PO SCH ×2 (08:54→21:01)
[2018-10-01] MEDS: Aspirin 81 mg Enteric Coated Tablet PO SCH (08:54)
[2018-10-01] MEDS: Cyclobenzaprine 10 MG TAB PO SCH (08:54)
[2018-10-01] MEDS: Potassium Chloride 20 MEQ TAB PO SCH ×2 (08:54→18:11)
[2018-10-01] MEDS: Collagenase 250 UNITS/GM Ointment 30 GM TUBE TOP SCH (08:56)
--- NOTE | 2018-10-01 20:55 | PRG ---
DATE OF SERVICE: 10/01/2018 SUBJECTIVE: The patient is lying in bed, visiting with daughter. He states he feels well. He is having no cough. Tolerating mechanical soft diet. Does not wish any changes despite speech therapy recommendations that he is unsafe. Daughter understands this. He also is refusing any debridement of his wound and wound VAC that the daughter requested, and despite recommendation, he is still refusing this, although informed that the likelihood of him healing his infection with oral antibiotics is very slim. OBJECTIVE: VITAL SIGNS: Show pulse 76, respirations 20, and O2 sats 97% on room air. LUNGS: Clear with decreased breath sounds. CARDIAC: Showed regular rhythm. ABDOMEN: Soft and nontender. SKIN/EXTREMITIES: Show a 4 to 5 cm longitudinal ulcer in the right calf with exposed bone and purulent discharge. NEUROLOGIC: Shows T5 paraplegia. ASSESSMENT: 1. Stage IV decubitus with probable osteomyelitis of right fibula on oral antibiotics as the patient has refused debridement and determination of long-term antibiotics. 2. Cancer of the esophagus with metastasis to the spine with subsequent paraplegia. 3. Escherichia coli urinary tract, responded to the Cipro. 4. Healing stage IV sacral decubitus, almost completely healed. PLAN: 1. Continue oral Cipro. 2. Stress need for debridement surgically and IV antibiotics. 3. Continue wound care. 4. Continue to monitor for aspiration as the patient signed waiver and is unsafe for any oral food. 5. Continue full code status. Job ID: [id number]
[2018-10-02] MEDS: Mometasone/Formoterol 60 PUFF AER INH SCH ×2 (05:43→19:00)
[2018-10-02] MEDS: Ciprofloxacin 500 MG TAB PO SCH ×2 (05:44→19:48)
[2018-10-02] MEDS: guaiFENesin ER 600 MG TAB PO SCH ×2 (08:25→19:48)
[2018-10-02] MEDS: Aspirin 81 mg Enteric Coated Tablet PO SCH (08:26)
[2018-10-02] MEDS: Potassium Chloride 20 MEQ TAB PO SCH ×2 (08:26→18:23)
[2018-10-02] MEDS: Collagenase 250 UNITS/GM Ointment 30 GM TUBE TOP SCH (08:26)
[2018-10-02] MEDS ORDERED: Cyclobenzaprine 10 MG TAB ONE (09:38)
[2018-10-02] MEDS ORDERED: AMOXicillin 250 MG CAP ONE (09:40)
[2018-10-02] MEDS: Cyclobenzaprine 10 MG TAB PO SCH (09:42)
[2018-10-02] MEDS: AMOXicillin 500 MG CAP PO SCH ×2 (09:43→15:31)
[2018-10-02] MEDS: AMOXicillin 250 MG CAP PO SCH ×2 (15:27→19:48)
--- NOTE | 2018-10-02 21:16 | PRG ---
DATE OF SERVICE: 10/02/2018 SUBJECTIVE: The patient feels well, lying in bed, eating. No complaints, visiting with the daughter, however, has been told by Physical Therapy that he does not require physical therapy or wound care as his wound is stable and only requires dry dressing. It is not improving with any therapy and can be taken care of by home health. Therefore, he does not qualify for halfway and will be discharged tomorrow. The patient advised that if he did decide to have surgical treatment and IV antibiotics, then he could be readmitted. He still does not wish to do this and therefore discharge tomorrow. OBJECTIVE: VITAL SIGNS: Temperature is 97.6, pulse 101, respirations 20, O2 sats 96% on room air, blood pressure is 145/62. LUNGS: Clear. CARDIAC: Regular rhythm. ABDOMEN: Soft, nontender. EXTREMITIES: Right leg wound is deep to the bone with purulent drainage. No tenderness as the patient is desensitized below the chest. ASSESSMENT: 1. Stage IV decubitus of the right lateral calf with exposed bone, on oral Cipro and amoxicillin as the patient refused IV antibiotics and debridement. 2. Paraplegia secondary to metastatic esophageal cancer to the thoracic spine, status post radiation and surgical debridement. 3. Recurrent aspiration risks with advisement to eating with some mechanical soft diet. PLAN: Discharge home tomorrow to follow up with home health care on oral Cipro and amoxicillin, wound care. Job ID: [id number]
[2018-10-03] MEDS: Mometasone/Formoterol 60 PUFF AER INH SCH (05:18)
[2018-10-03] MEDS: Ciprofloxacin 500 MG TAB PO SCH (05:18)
[2018-10-03 07:30] VITALS: BP 101/53; TEMP 98.9
[2018-10-03] MEDS ORDERED: Cyclobenzaprine 10 MG TAB ONE (07:33)
[2018-10-03] MEDS: guaiFENesin ER 600 MG TAB PO SCH (08:42)
[2018-10-03] MEDS: Cyclobenzaprine 10 MG TAB PO SCH (08:42)
[2018-10-03] MEDS: Aspirin 81 mg Enteric Coated Tablet PO SCH (08:42)
[2018-10-03] MEDS: Potassium Chloride 20 MEQ TAB PO SCH (08:42)
[2018-10-03] MEDS: AMOXicillin 250 MG CAP PO SCH (08:43)
[2018-10-03] MEDS: Collagenase 250 UNITS/GM Ointment 30 GM TUBE TOP SCH (08:45)
== END 2018-10-03 10:20 | disposition home health service (06) | DRG 689 ==
LOC: NAV ACUTE 18:41
PROVIDERS: ADMIT Internal Medicine; ATTEND Internal Medicine
DX: N39.0 Urinary tract infection, site not specified (principal); L89.894 Pressure ulcer of other site, stage 4; R78.81 Bacteremia; G82.20 Paraplegia, unspecified; M86.8X6 Other osteomyelitis, lower leg; C79.49 Secondary malignant neoplasm of other parts of nervous system; C15.9 Malignant neoplasm of esophagus, unspecified; B96.20 Unspecified Escherichia coli [E. coli] as the cause of diseases classified elsewhere; J44.9 Chronic obstructive pulmonary disease, unspecified; Z92.3 Personal history of irradiation; Z87.891 Personal history of nicotine dependence
CPT/HCPCS: 36415; 80053; 81001; 85025; 87070; 87077; 87086; 87186; 87205; 94640; 97602; J7620